=== PATIENT | female | born 1980 | race Caucasian/White ===

== ENCOUNTER 2016-05-08 16:43 | Emergency (ER) | payer OTHER ==
[2016-05-08 17:10] VITALS: BP 136/74
--- NOTE | 2016-05-08 17:44 | UC ---
Throat Pain/Nasal Oziel HPI - HPI Summary HPI Summary: complaint of ear pain , nasal congesion and cough ears feel sensitive to noise frequent headaches feels exhausted muscles feel achy nauseated but denies vomiting and diarrhea denies fever but has had chills hasn't taken any medications for symptoms - History of Current Complaint Chief Complaint: UCGeneralIllness Stated Complaint: THROAT AND EAR PAIN Time Seen by Provider: 05/08/16 17:36 Hx Obtained From: Patient Hx Last Menstrual Period: hysterectomy 2011 - Allergies/Home Medications Allergies/Adverse Reactions: Allergies Allergy/AdvReac Type Severity Reaction Status Date / Time Metronidazole [From Flagyl] Allergy Rash Verified 05/08/16 17:10 PMH/Surg Hx/FS Hx/Imm Hx Previously Healthy: Yes Endocrine History Of: Denies: Diabetes - low blood sugars Neurological History Of: Reports: Seizures - Surgical History Surgical History: Yes Surgery Procedure, Year, and Place: HYSTERECTOMY 2011, GASTRIC BYPASS 2011 - Family History Known Family History: Positive: None, Unknown - poor historian Negative: Diabetes - Social History Occupation: Employed Full-time Lives: Alone Alcohol Use: None Alcohol Amount: UNABLE TO OBTAIN Substance Use Type: None Substance Use Comment - Amount & Last Used: UNABLE TO OBTAIN Smoking Status (MU): Never Smoked Tobacco - Immunization History Most Recent Tetanus Shot: not sure Review of Systems Constitutional: Chills, Fatigue Skin: Negative Eyes: Negative ENT: Sore Throat, Ear Ache, Nasal Discharge Respiratory: Cough Cardiovascular: Negative Gastrointestinal: Negative Genitourinary: Negative Motor: Negative Neurovascular: Negative Musculoskeletal: Negative Neurological: Headache Psychological: Negative All Other Systems Reviewed And Are Negative: Yes Physical Exam Triage Information Reviewed: Yes Appearance: No Pain Distress, Well-Nourished, Ill-Appearing Vital Signs: Initial Vital Signs Temp 98.5 F 05/08/16 17:03 Pulse 77 05/08/16 17:03 Resp 18 05/08/16 17:03 BP 136/74 05/08/16 17:03 Pulse Ox 97 05/08/16 17:03 Vital Signs Reviewed: Yes Eyes: Positive: Conjunctiva Clear ENT: Positive: Pharynx normal, Nasal congestion, Nasal drainage, TMs normal. Negative: TM bulging, TM red Neck: Positive: No Lymphadenopathy Respiratory: Positive: Lungs clear, Normal breath sounds, No respiratory distress Cardiovascular: Positive: RRR, No Murmur, Pulses Normal Abdomen Description: Positive: Nontender, Soft Bowel Sounds: Positive: Present Musculoskeletal: Positive: No Edema Neurological: Positive: Alert Psychological Exam: Normal Skin Exam: Normal Throat Pain/Nasal Course/Dx - Course Course Of Treatment: exam completed. viral illness supportive treatment - Differential Dx/Diagnosis Differential Diagnosis/HQI/PQRI: Influenza, Pharyngitis, URI Provider Diagnoses: viral illness- influenzalike Discharge - Discharge Plan Condition: Stable Disposition: HOME Patient Education Materials: Influenza (ED) Referrals: Tarik Ayala NP [Primary Care Provider] - Additional Instructions: Your blood pressure is pre-hypertensive reading. Please contact your primary care provider within 1 day -4 weeks for further evaluation. you have an influenza like viral illness. Treatment is supportive care, increase fluids and rest, take acetaminophen or ibuprofen for fever or pain Please review your discharge instructions. If your symptoms do not improve please call your primary care provider or return to urgent care
== END 2016-05-08 18:22 | disposition home or self-care (01) ==
LOC: UCEAST 16:43
DX: B34.9 Viral infection, unspecified (principal); J11.1 Influenza due to unidentified influenza virus with other respiratory manifestations; Z88.1 Allergy status to other antibiotic agents; Z98.84 Bariatric surgery status
CPT/HCPCS: 87502; 99211; G0463

== ENCOUNTER 2016-09-06 13:45 | Emergency (ER) | payer OTHER ==
[2016-09-06] MEDS ORDERED: NS 0.9% 1000 ML* 1,000 ML IV ONE ×2 (14:12→15:07)
[2016-09-06 14:22] LABS: Hematocrit 44 % (35-47); Hemoglobin 14.9 g/dl (12.0-16.0); Mean Corpuscular HGB Conc 34 g/dl (31-36); Mean Corpuscular Hemoglobin 29 pg (27-31); Mean Corpuscular Volume 87 fL (80-97); Mean Platelet Volume 8 um3 (7.4-10.4); Red Cell Distribution Width 12 % (10.5-15)
[2016-09-06 14:41] LABS: Albumin 4.1 g/dL (3.2-5.2); BUN/Creatinine Ratio 20.7 (8-20); EGFR African American 102.6 (>60); EGFR Non-African American 79.8 (>60); Globulin 2.9 g/dL (2-4); Magnesium 2.1 mg/dL (1.9-2.7); Potassium 3.9 mmol/L (3.5-5.0); Total Bilirubin 0.4 mg/dL (0.2-1.0)
[2016-09-06 14:47] LABS: TSH (Thyroid Stimulating Horm) 2.08 mcIU/mL (0.34-5.60)
[2016-09-06] MEDS ORDERED: Ketorolac INJ* 30 MG/ML 1 ML VIAL IV PUSH ONE (15:04)
[2016-09-06] MEDS ORDERED: Metoclopramide IV* 5 MG/ML 2 ML VIAL IV ONE (15:05)
[2016-09-06] MEDS ORDERED: diPHENhydraMINE IV* 50 MG/ML 1 ml VIAL (BENADRYL) IV ONE (15:05)
[2016-09-06 16:02] LABS: Urine Bilirubin Negative (Negative); Urine Glucose Negative (Negative); Urine Nitrite Negative (Negative)
[2016-09-06 16:22] VITALS: BP 115/82
--- NOTE | 2016-09-06 19:15 | ED ---
Nelida Vasquez Edward, scribed for Isaiah Arias MD on 09/06/16 at 1442 . Neurological HPI - HPI Summary HPI Summary: 36 y/o female BIBA to ED s/p seizure earlier today. Patient had a slight CASAS before the seizure. The CASAS has been going on for 3 days and she still has a CASAS now, worse than the typical CASAS. The CASAS is located in the top L side of the head. She states that the CASAS's are usually alleviated with Tylenol and rest. Associated sx: dizziness, diaphoresis, nausea with CASAS. PMHx hypoglycemia, CASAS's ( daily). called EMS; per EMS the patient has upper body shaking during her seizures. Pt takes Topamax. Non-smoker, no EtOH use. - History of Current Complaint Chief Complaint: EDSeizure Stated Complaint: SEIZURE Time Seen by Provider: 09/06/16 14:36 Hx Obtained From: Patient Hx Last Menstrual Period: hysterectomy 2011 Onset/Duration: Sudden Onset, Started hours ago - Earlier today Number of Seizures: 1 Neurological Deficit Location: Generalized - Upper body shaking Headache Location: Diffuse (Left) - Top of head Pain Intensity: 0 Character: Dizzy, Other: - Nausea with CASAS, diaphoresis - Allergy/Home Medications Allergies/Adverse Reactions: Allergies Allergy/AdvReac Type Severity Reaction Status Date / Time Metronidazole [From Flagyl] Allergy Rash Verified 05/08/16 17:10 Home Medications: Home Medications Topiramate TAB(*) [Topamax 25 MG tab] 25 mg PO QAM 09/06/16 [History Confirmed 09/06/16] PMH/Surg Hx/FS Hx/Imm Hx Previously Healthy: No Endocrine/Hematology History: Denies: Hx Diabetes - low blood sugars Neurological History: Reports: Hx Seizures - Surgical History Surgery Procedure, Year, and Place: HYSTERECTOMY 2011, GASTRIC BYPASS 2011 Infectious Disease History: No Infectious Disease History: Denies: Hx Clostridium Difficile, Hx Hepatitis, Hx Human Immunodeficiency Virus (HIV), Hx of Known/Suspected MRSA, Hx Shingles, Hx Tuberculosis, Hx Known/ Suspected VRE, Hx Known/Suspected VRSA, History Other Infectious Disease, Traveled Outside the [place] in Last 30 Days - Family History Known Family History: Negative: Diabetes - Social History Occupation: Employed Full-time Lives: With Family Alcohol Use: None Hx Substance Use: No Substance Use Type: Reports: None Hx Tobacco Use: No Smoking Status (MU): Never Smoked Tobacco Review of Systems Positive: Skin Diaphoresis - Prior to seizure Eyes: Negative ENT: Negative Cardiovascular: Negative Respiratory: Negative Positive: Nausea Genitourinary: Negative Musculoskeletal: Negative Skin: Negative Neurological: Other - Dizziness Positive: Headache. Negative: Syncope Psychological: Normal All Other Systems Reviewed And Are Negative: Yes Physical Exam - Summary Physical Exam Summary: The patient is well-nourished in no acute distress and in no acute pain. The skin is warm and dry and skin color reflects adequate perfusion. HEENT: The head is normocephalic and atraumatic. The pupils are equal and reactive. The conjunctivae are clear and without drainage. Nares are patent and without drainage. Mouth reveals moist mucous membranes and the throat is without erythema and exudate. The external ears are intact. Neck is supple with full range of motion and non-tender. There are no carotid bruits. There is no neck vein distension. Respiratory: Chest is non-tender. Lungs are clear to auscultation and breath sounds are symmetrical and equal. Cardiovascular: Hear is regular rate and rhythm. There is no murmur or rub auscultated. There is no peripheral edema and pulses are symmetrical and equal. Abdomen: The abdomen is soft and non-tender. There are normal bowel sounds heard in all four quadrants and there is no organomegaly palpated. Musculoskeletal: There is no back pain noted. Extremities are non-tender with full range of motion. There is good capillary refill. There is no peripheral edema or calf tenderness elicited. Neurological: Patient is alert and oriented to person, place and time. The patient has symmetrical motor strength in all four extremities. Cranial nerves are grossly intact. Deep tendon reflexes are symmetrical and equal in all four extremities. Psychiatric: The patient has an appropriate affect and does not exhibit any anxiety or depression. Triage Information Reviewed: Yes Vital Signs On Initial Exam: Initial Vitals Temp Pulse Resp BP Pulse Ox 98.0 F 65 18 112/71 95 09/06/16 13:58 09/06/16 13:58 09/06/16 13:58 09/06/16 13:58 09/06/16 13:58 Vital Signs Reviewed: Yes - Hortensia Coma Scale Coma Scale Total: 15 Diagnostics - Vital Signs Vital Signs Temp Pulse Resp BP Pulse Ox 09/06/16 14:30 59 14 112/76 97 09/06/16 14:16 97 09/06/16 14:07 70 19 96 09/06/16 14:06 114/78 09/06/16 13:58 98.0 F 65 18 112/71 95 - Laboratory Lab Results: Lab Results 09/06/16 09/06/16 Range/Units 14:00 14:00 WBC 9.0 (3.5-10.8) 10^3/ul RBC 5.10 (4.0-5.4) 10^6/ul Hgb 14.9 (12.0-16.0) g/dl Hct 44 (35-47) % MCV 87 (80-97) fL MCH 29 (27-31) pg MCHC 34 (31-36) g/dl RDW 12 (10.5-15) % Plt Count 323 (150-450) 10^3/ul MPV 8 (7.4-10.4) um3 Neut % (Auto) 61.4 (38-83) % Lymph % (Auto) 29.2 (25-47) % Greenlee % (Auto) 6.8 (1-9) % Eos % (Auto) 2.1 (0-6) % Baso % (Auto) 0.5 (0-2) % Absolute Neuts (auto) 5.5 (1.5-7.7) 10^3/ul Absolute Lymphs (auto) 2.6 (1.0-4.8) 10^3/ul Absolute Monos (auto) 0.6 (0-0.8) 10^3/ul Absolute Eos (auto) 0.2 (0-0.6) 10^3/ul Absolute Basos (auto) 0 (0-0.2) 10^3/ul Absolute Nucleated RBC 0.01 10^3/ul Nucleated RBC % 0.2 Lactic Acid 1.3 (0.5-2.0) mmol/L Result Diagrams: 09/06/16 14:00 09/06/16 14:00 Lab Statement: Any lab studies that have been ordered have been reviewed, and results considered in the medical decision making process. Re-Evaluation - Re-Evaluation 1 Re-Evaluation Time: 16:20 Change: Improved Course/Dx - Course Assessment/Plan: 36 y/o female BIBA to ED s/p seizure earlier today. Patient had a slight CASAS before the seizure. The CASAS has been going on for 3 days and she still has a CASAS now, worse than the typical CASAS. The CASAS is located in the top L side of the head. She states that the CASAS's are usually alleviated with Tylenol and rest. Associated sx: dizziness, diaphoresis, nausea with CASAS. PMHx hypoglycemia, CASAS's (daily). called EMS; per EMS the patient has upper body shaking during her seizures. Pt takes Topamax. Non-smoker, no EtOH use. On re-eval, pt's symptoms have improved. Pt will be d/c home with f/u with PCP. - Differential Dx Differential Diagnoses Neuro: Positive: Hypoglycemia, Hypovolemia, Migraine, Seizure Disorder - Diagnoses Provider Diagnoses: Headache, Seizure Discharge - Discharge Plan Condition: Stable Disposition: HOME Patient Education Materials: General Headache (ED), Nonepileptic Seizures (ED) Referrals: Tarik Ayala, [facility]ON[facility] BUFFER [Primary Care Provider] - 3 Days (Please f/u in 2-3 days) The documentation as recorded by the Nelida connor Edward accurately reflects the service I personally performed and the decisions made by , Isaiah Arias MD.
== END 2016-09-06 16:44 | disposition home or self-care (01) ==
LOC: ED 13:45
DX: R56.9 Unspecified convulsions (principal); R51 Headache; R42 Dizziness and giddiness; R11.0 Nausea
CPT/HCPCS: 36415; 80053; 80201; 81003; 82550; 83605; 83735; 84443; 85025; 85610; 96374; 96375; 99282; J1200; J1885

== ENCOUNTER 2017-05-16 14:42 | Emergency (ER) | payer OTHER ==
[2017-05-16 14:54] VITALS: BP 117/83
[2017-05-16] MEDS ORDERED: predniSONE TAB* 20 MG PO ONE (15:45)
--- NOTE | 2017-05-16 15:45 | UC ---
Skin Complaint HPI - HPI Summary HPI Summary: States that 5 days ago she started to take apple cider vinegar before 2 of her meals and noticed some itching in the right commisure of her mouth, followed by itching in the roof of her mouth, the crack of her buttocks, the crease under belly, nipples and skin around her eyes. She states she has been using same soaps as usual. She used benadryl without any relief. - History of Current Complaint Chief Complaint: UCAllergicReaction Time Seen by Provider: 05/16/17 15:35 Stated Complaint: POSSIBLE ALLERGIC REACTION Hx Obtained From: Patient Hx Last Menstrual Period: hysterectomy 2012 ?: No Onset/Duration: Sudden Onset, Lasting Days Skin Exposure Onset/Duration: Days Ago Onset Severity: Mild Current Severity: Severe Pain Intensity: 0 Location: Diffuse, Other - in creases Character: Pruritus Aggravating Factor(s): Other - ingested vinegar Alleviating Factor(s): Nothing - Allergy/Home Medications Allergies/Adverse Reactions: Allergies Allergy/AdvReac Type Severity Reaction Status Date / Time metronidazole [From Flagyl] Allergy Rash Verified 05/16/17 14:55 Review of Systems Constitutional: Negative All Other Systems Reviewed And Are Negative: Yes PMH/Surg Hx/FS Hx/Imm Hx Previously Healthy: Yes Neurological History: Other - occipital headaches Other Neurological History: occipital headaches Psychological History: Depression - Surgical History Surgical History: Yes Surgery Procedure, Year, and Place: HYSTERECTOMY 2011, GASTRIC BYPASS 2011 - Family History Known Family History: Positive: None, Unknown - poor historian Negative: Diabetes - Social History Alcohol Use: None Alcohol Amount: UNABLE TO OBTAIN Substance Use Type: None Substance Use Comment - Amount & Last Used: UNABLE TO OBTAIN Smoking Status (MU): Never Smoked Tobacco - Immunization History Most Recent Tetanus Shot: not sure Physical Exam Triage Information Reviewed: Yes Appearance: Well-Appearing, Obese Vital Signs: Initial Vital Signs Temp 98.2 F 05/16/17 14:50 Pulse 64 05/16/17 14:50 Resp 18 05/16/17 14:50 BP 117/83 05/16/17 14:50 Pulse Ox 100 05/16/17 14:50 Vital Signs Reviewed: Yes Eyes: Positive: Conjunctiva Clear ENT: Positive: Hearing grossly normal, Pharynx normal, TMs normal, Uvula midline Neck: Positive: Supple, Nontender, No Lymphadenopathy Respiratory: Positive: Chest non-tender, Lungs clear, Normal breath sounds, No respiratory distress Cardiovascular: Positive: RRR, No Murmur, Pulses Normal Abdomen Description: Positive: Nontender Bowel Sounds: Positive: Present Musculoskeletal Exam: Normal Skin: Positive: Other - erythema on left zygoma and escoriation duron on left lower eyelid, right side of mouth. No echymoses Course/Dx - Course Course Of Treatment: start prednisone 60mg po daily for 5 days, f/u PCP, discontinue apple cider vinegar - Diagnoses Provider Diagnoses: urticaria Discharge - Sign-Out/Discharge Documenting (check all that apply): Discharge - Discharge Plan Condition: Stable Disposition: HOME Patient Education Materials: Urticaria (ED), Prednisone (By mouth) Referrals: Tarik Ayala NP [Primary Care Provider] - - Billing Disposition and Condition Condition: STABLE Disposition: HOME
== END 2017-05-16 16:16 | disposition home or self-care (01) ==
LOC: UCEAST 14:42
DX: L50.9 Urticaria, unspecified (principal); F32.9 Major depressive disorder, single episode, unspecified; Z88.1 Allergy status to other antibiotic agents
CPT/HCPCS: 99212; G0463; J7512

== ENCOUNTER 2017-08-03 09:42 | Emergency (ER) | payer OTHER ==
[2017-08-03 09:59] VITALS: BP 132/67
--- NOTE | 2017-08-03 10:24 | UC ---
Complaint Female HPI - HPI Summary HPI Summary: The patient is a 36-year-old female with a first presents with a one-month history of foul-smelling urine. She states her urine has smelled fishy. She denies any vaginal discharge or itching /she has not had any dysuria. She has it had increased frequency of urination 2 weeks. For the past 24 hours she has had some mild pelvic pain. She has a history of UTIs. She denies any history of pyelonephritis. She has had transabdominal hysterectomy. - History Of Current Complaint Chief Complaint: UCGU Stated Complaint: URINARY ISSUE Time Seen by Provider: 08/03/17 09:54 Hx Obtained From: Patient Hx Last Menstrual Period: hysterectomy 2011 Onset/Duration: Gradual Onset Timing: Constant Severity Initially: Mild Severity Currently: Mild Pain Intensity: 3 Pain Scale Used: 0-10 Numeric Character: Dull Aggravating Factor(s): Nothing Associated Signs And Symptoms: Positive: Negative - Allergies/Home Medications Allergies/Adverse Reactions: Allergies Allergy/AdvReac Type Severity Reaction Status Date / Time metronidazole [From Flagyl] Allergy Rash Verified 08/03/17 09:59 Home Medications: Home Medications Cranberry 400 mg PO DAILY 08/03/17 [History Confirmed 08/03/17] Multivitamin [Multivitamins] 1 cap PO DAILY 08/03/17 [History Confirmed 08/03/17 ] PMH/Surg Hx/FS Hx/Imm Hx Previously Healthy: Yes - Surgical History Surgical History: Yes Surgery Procedure, Year, and Place: HYSTERECTOMY 2011, GASTRIC BYPASS 2011 - Family History Known Family History: Positive: None, Unknown - poor historian, Diabetes - Social History Alcohol Use: None Alcohol Amount: UNABLE TO OBTAIN Substance Use Type: None Substance Use Comment - Amount & Last Used: UNABLE TO OBTAIN Smoking Status (MU): Never Smoked Tobacco - Immunization History Most Recent Tetanus Shot: not sure Review of Systems Constitutional: Negative Skin: Negative Eyes: Negative ENT: Negative Respiratory: Negative Cardiovascular: Negative Gastrointestinal: Negative Genitourinary: Frequency, Urgency Motor: Negative Neurovascular: Negative Musculoskeletal: Negative Neurological: Negative Psychological: Negative Is Patient Immunocompromised?: No All Other Systems Reviewed And Are Negative: Yes Physical Exam Triage Information Reviewed: Yes Appearance: Well-Appearing, No Pain Distress, Well-Nourished Vital Signs: Initial Vital Signs Temp 98.8 F 08/03/17 09:53 Pulse 91 08/03/17 09:53 Resp 16 08/03/17 09:53 BP 132/67 08/03/17 09:53 Pulse Ox 98 08/03/17 09:53 Eyes: Positive: Conjunctiva Clear ENT: Positive: Hearing grossly normal. Negative: Nasal congestion, Nasal drainage, Trismus, Muffled voice, Hoarse voice Neck: Positive: Supple Respiratory: Positive: Lungs clear, Normal breath sounds, No respiratory distress, No accessory muscle use Cardiovascular: Positive: RRR, No Murmur Abdomen Description: Positive: Nontender, No Organomegaly. Negative: CVA Tenderness (R), CVA Tenderness (L), Hernia @, McBurney's Point Tenderness, Splenomegaly Pelvic Exam: Positive: External Exam Normal, No Masses, Discharge - with amine oder. Negative: Bimanual Exam Normal - absent uterus, Mass, Tender Adnexa, Ulcers Musculoskeletal: Positive: ROM Intact, No Edema Neurological: Positive: Alert Psychological Exam: Normal Skin Exam: Normal Diagnostics - Laboratory Diagnostic Studies Completed/Ordered: urine analysis (-) Complaint Female Dx - Differential Dx/Diagnosis Provider Diagnoses: bacterial vaginosis Discharge - Sign-Out/Discharge Documenting (check all that apply): Discharge/Admit/Transfer - Discharge Plan Condition: Stable Disposition: HOME Prescriptions: Clindamycin SUPP (NF) [Cleocin 100 MG SUPP (NF)] 100 mg VAGINAL BEDTIME #3 sup Patient Education Materials: Bacterial Vaginosis (ED) Referrals: Tarik Ayala, [employer] [Primary Care Provider] - If Needed Additional Instructions: I suspect your urinary symptoms are due to BV test is pending one vaginal suppository at bedtime x 3 days recheck late this week if not improving a urine culture is pending - Billing Disposition and Condition Condition: STABLE Disposition: Home
--- NOTE | 2017-08-05 13:31 | UC ---
- Progress Note Progress Note: urine reviewed [id number] E.. coli Pt given clinda suppo for BV will Rx Augmentin please call pt to update and get Rx Ljj 08/05/2017 Discharge - Sign-Out/Discharge Documenting (check all that apply): Post-Discharge Follow Up - Discharge Plan Condition: Stable Disposition: HOME Prescriptions: Clindamycin SUPP (NF) [Cleocin 100 MG SUPP (NF)] 100 mg VAGINAL BEDTIME #3 sup Patient Education Materials: Bacterial Vaginosis (ED), Urinary Tract Infection in Women (DC) Referrals: Tarik Ayala, [employer] TECHNICIAN [Primary Care Provider] - If Needed Additional Instructions: I suspect your urinary symptoms are due to BV test is pending one vaginal suppository at bedtime x 3 days recheck late this week if not improving a urine culture is pending - Billing Disposition and Condition Condition: STABLE Disposition: Home
== END 2017-08-03 10:50 | disposition home or self-care (01) ==
LOC: UCEAST 09:42
DX: N76.0 Acute vaginitis (principal); B96.89 Other specified bacterial agents as the cause of diseases classified elsewhere; Z88.8 Allergy status to other drugs, medicaments and biological substances
CPT/HCPCS: 81003; 87077; 87086; 87186; 87480; 87510; 99212; G0463

== ENCOUNTER 2018-04-29 07:29 | Emergency (ER) | payer OTHER ==
[2018-04-29 07:45] VITALS: BP 140/89
[2018-04-29] MEDS ORDERED: Cyclobenzaprine TAB* 10 MG PO ONE (07:58)
[2018-04-29] MEDS ORDERED: Ketorolac INJ* 60 MG/2 ML VIAL IM ONE (07:58)
[2018-04-29] MEDS ORDERED: LORazepam TAB(*) 1 MG PO ONE (08:04)
--- NOTE | 2018-04-29 08:11 | ED ---
Back Pain - HPI Summary HPI Summary: 37 yo WF p/w acute LBP that tightened up m,ore this AM after pushing a brick yesterday while bent over, pain radiated B/L, Left>right - History of Current Complaint Chief Complaint: UCBackPain Stated Complaint: BACK PAIN Time Seen by Provider: 04/29/18 07:58 Hx Obtained From: Patient Hx Last Menstrual Period: hyster Onset/Duration: Sudden Onset Onset/Duration: Atraumatic Timing: Constant Back Pain Location: Radiates To - B/L legs Severity Initially: Severe Pain Intensity: 10 - Allergies/Home Medications Allergies/Adverse Reactions: Allergies Allergy/AdvReac Type Severity Reaction Status Date / Time metronidazole [From Flagyl] Allergy Rash Verified 03/29/18 11:12 PMH/Surg Hx/FS Hx/Imm Hx Previously Healthy: Yes Endocrine/Hematology History: Reports: Hx Diabetes - hyperglycemia Neurological History: Reports: Hx Seizures - Cancer History Cancer Type, Location and Year: denies - Surgical History Surgery Procedure, Year, and Place: HYSTERECTOMY 2011, GASTRIC BYPASS 2012 Infectious Disease History: No Infectious Disease History: Denies: Hx Clostridium Difficile, Hx Hepatitis, Hx Human Immunodeficiency Virus (HIV), Hx of Known/Suspected MRSA, Hx Shingles, Hx Tuberculosis, Hx Known/ Suspected VRE, Hx Known/Suspected VRSA, History Other Infectious Disease, Traveled Outside the [place] in Last 30 Days - Family History Known Family History: Positive: Hypertension, Diabetes - Social History Alcohol Use: None Alcohol Amount: UNABLE TO OBTAIN Hx Substance Use: No Substance Use Type: Reports: None Substance Use Comment - Amount & Last Used: UNABLE TO OBTAIN Hx Tobacco Use: No Smoking Status (MU): Never Smoked Tobacco Review of Systems - ROS Summary Review of Systems Summary: Constitutional: Negative Eyes: Negative ENT: Negative Cardiovascular: Negative Respiratory: Negative Gastrointestinal: Negative Genitourinary: Negative Musculoskeletal: Acute low back spasm Neurological: Negative Psychological: Normal All Other Systems Reviewed And Are Negative: Yes All Other Systems Reviewed And Are Negative: Yes Physical Exam - Summary Physical Exam Summary: Triage Information Reviewed: Yes Appearance: severe Pain Distress, cannot sit Eye Exam: Normal ENT Exam: Normal ENT: Positive: Normal ENT inspection Neck: Positive: Supple Respiratory: Positive: Lungs clear, Normal breath sounds Cardiovascular: Positive: RRR, S1, S2 Abdominal Exam: Normal Musculoskeletal Exam: B/L parapspinal tenderness, deep, lumbar level 4-5 with radiation to LLE>RLE Neurological Exam: Normal Psychological Exam: Normal Skin Exam: Normal Vital Signs On Initial Exam: Initial Vitals Temp Pulse Resp BP Pulse Ox 36.5 C 110 19 140/89 98 04/29/18 07:39 04/29/18 07:39 04/29/18 07:39 04/29/18 07:39 04/29/18 07:39 Diagnostics - Vital Signs Vital Signs Temp Pulse Resp BP Pulse Ox 04/29/18 07:39 36.5 C 110 19 140/89 98 - Laboratory Lab Statement: Any lab studies that have been ordered have been reviewed, and results considered in the medical decision making process. Back Pain Course/Dx - Course Course Of Treatment: Acute back spasm improved with PO ativan, IM Toradol and PO flexeril, pt can ambulate now, advised to go to ED if intractable pain returns - Diagnoses Provider Diagnoses: Acute back pain with sciatica Discharge - Sign-Out/Discharge Documenting (check all that apply): Patient Departure All imaging exams completed and their final reports reviewed: No Studies - Discharge Plan Condition: Stable Disposition: HOME Prescriptions: Naproxen [Naproxen 500 mg tab] 500 mg PO BID 10 Days #20 tablet tiZANidine TAB* [Zanaflex TAB*] 2 tab PO BEDTIME 5 Days #10 tab Patient Education Materials: Muscle Spasm (ED) Referrals: Tarik Ayala NP [Primary Care Provider] - - Billing Disposition and Condition Condition: STABLE Disposition: Home
== END 2018-04-29 09:10 | disposition home or self-care (01) ==
LOC: UCEAST 07:29
DX: M54.42 Lumbago with sciatica, left side (principal); M54.41 Lumbago with sciatica, right side; E11.9 Type 2 diabetes mellitus without complications; Z88.1 Allergy status to other antibiotic agents
CPT/HCPCS: 99212; A9270-GY; G0463; J1885

== ENCOUNTER 2018-06-28 08:01 | Emergency (ER) | payer OTHER ==
[2018-06-28 08:14] VITALS: BP 142/83
--- NOTE | 2018-06-28 08:23 | UC ---
Abdominal Pain Female HPI - HPI Summary HPI Summary: 37 yo female with acute onset of severe abd pain 4AM no n/v/d or anorexia ate breakfast with no increase in pain pain is RUQ with no radiation to back no UTI symptoms had gastric bypass - History of Current Complaint Stated Complaint: STOMACH PAIN Hx Obtained From: Patient Hx Last Menstrual Period: hyster Onset/Duration: Lasting Hours Severity Initially: Severe Severity Currently: Severe Pain Intensity: 10 Pain Scale Used: 0-10 Numeric Location: Discrete At: RUQ Radiates to: Back Character: Aching Aggravating Factor(s): Nothing Alleviating Factor(s): Nothing Associated Signs and Symptoms: Positive: Negative Allergies/Adverse Reactions: Allergies Allergy/AdvReac Type Severity Reaction Status Date / Time metronidazole [From Flagyl] Allergy Rash Verified 06/28/18 08:14 Home Medications: Home Medications diphenhydrAMINE HCl [Benadryl Allergy] 4 tab PO ONCE PRN 06/28/18 [History Confirmed 06/28/18] hydrOXYzine HCL TAB* [Atarax 25 MG TAB*] 25 mg PO QID PRN 06/28/18 [History Confirmed 06/28/18] PMH/Surg Hx/FS Hx/Imm Hx Previously Healthy: Yes GI/ History: Kidney Stones - Surgical History Surgical History: Yes Surgery Procedure, Year, and Place: HYSTERECTOMY 2011, GASTRIC BYPASS 2012 - Family History Known Family History: Positive: Hypertension, Diabetes - Social History Alcohol Use: None Alcohol Amount: UNABLE TO OBTAIN Substance Use Type: None Substance Use Comment - Amount & Last Used: UNABLE TO OBTAIN Smoking Status (MU): Never Smoked Tobacco - Immunization History Most Recent Tetanus Shot: not sure Review of Systems All Other Systems Reviewed And Are Negative: Yes Constitutional: Positive: Negative Skin: Positive: Negative Eyes: Positive: Negative ENT: Positive: Negative Respiratory: Positive: Negative Cardiovascular: Positive: Negative Gastrointestinal: Positive: Abdominal Pain Genitourinary: Positive: Negative Motor: Positive: Negative Neurovascular: Positive: Negative Musculoskeletal: Positive: Negative Neurological: Positive: Negative Psychological: Positive: Negative Physical Exam Triage Information Reviewed: Yes Appearance: Well-Appearing, Well-Nourished - BMI 39.5, Pain Distress Vital Signs: Initial Vital Signs Temp 97.6 F 06/28/18 08:10 Pulse 63 06/28/18 08:10 Resp 20 06/28/18 08:10 BP 142/83 06/28/18 08:10 Pulse Ox 98 06/28/18 08:10 Vital Signs Reviewed: Yes Eyes: Positive: Conjunctiva Clear ENT: Positive: Hearing grossly normal. Negative: Nasal congestion, Nasal drainage, Trismus, Muffled voice, Hoarse voice Neck: Positive: Supple, Nontender, No Lymphadenopathy Respiratory: Positive: Lungs clear, Normal breath sounds, No respiratory distress Cardiovascular: Positive: RRR, No Murmur Abdomen Description: Positive: No Organomegaly, Soft. Negative: Nontender - markedly tender RUQ, CVA Tenderness (R), CVA Tenderness (L) Bowel Sounds: Positive: Present Musculoskeletal: Positive: ROM Intact, No Edema Neurological: Positive: Alert Psychological Exam: Normal Skin Exam: Normal Abd Pain Female Course/Dx - Differential Dx/Diagnosis Provider Diagnosis: Right sided abdominal pain Discharge - Sign-Out/Discharge Documenting (check all that apply): Patient Departure All imaging exams completed and their final reports reviewed: No Studies - Discharge Plan Condition: Stable Disposition: TRANS HIGHER LVL OF CARE FAC Referrals: Tarik Ayala NP [Primary Care Provider] - - Billing Disposition and Condition Condition: STABLE Disposition: Trans Higher Lvl of Care Fac
[2018-06-28] MEDS ORDERED: Morphine INJ* 2 MG/ML 1 ML SYRINGE (TWO MG - NEW SYRINGE VERSION) IV ONE (08:24)
[2018-06-28] MEDS ORDERED: Morphine 10 MG/ML VIAL (1 ml) IV ONE (08:29)
== END 2018-06-28 09:07 | disposition short-term general hospital (02) ==
LOC: UCEAST 08:01
DX: R10.11 Right upper quadrant pain (principal); Z98.84 Bariatric surgery status; Z88.1 Allergy status to other antibiotic agents
CPT/HCPCS: 96374; 99213; G0463; J2270

== ENCOUNTER 2018-06-28 09:23 | Emergency (ER) | payer OTHER ==
[2018-06-28] MEDS ORDERED: Ketorolac INJ* 30 MG/ML 1 ML VIAL IV PUSH ONE (09:53)
[2018-06-28 09:56] LABS: ABS Basophils 0.1 10^3/ul (0-0.2); ABS Lymphocytes 1.5 10^3/ul (1.0-4.8); ABS Monocytes 0.4 10^3/ul (0-0.8); ABS Neutrophils 8.3 10^3/ul (1.5-7.7); Eosinophil % 0.5 %; Hematocrit 41 % (35-47); Hemoglobin 13.4 g/dL (12.0-16.0); Lymphocyte % 14.2 %; Mean Corpuscular HGB Conc 33 g/dL (31-36); Mean Corpuscular Hemoglobin 28 pg (27-31); Mean Corpuscular Volume 85 fL (80-97); Mean Platelet Volume 7.5 fL (7.4-10.4); Platelet Count 330 10^3/uL (150-450); Red Blood Count 4.78 10^6 /uL (3.70-4.87); Red Cell Distribution Width 12 % (10.5-15); White Blood Count 10.3 10^3/uL (3.5-10.8)
[2018-06-28 10:03] LABS: INR 0.96 (0.82-1.09)
[2018-06-28 10:12] LABS: Albumin/Globulin Ratio 1.5 (1-3); BUN/Creatinine Ratio 23.3 (8-20); C Reactive Protein 1.68 mg/L (<8.01); Calcium 8.9 mg/dL (8.6-10.3); EGFR African American 109.8 (>60); EGFR Non-African American 90.7 (>60); Globulin 2.6 g/dL (2-4); Potassium 4.2 mmol/L (3.5-5.0); Total Bilirubin 0.3 mg/dL (0.2-1.0); Total Protein 6.6 g/dL (6.4-8.9)
[2018-06-28 10:37] LABS: Urine Appearance Clear; Urine Bilirubin Negative (Negative); Urine Blood Negative (Negative); Urine Color Yellow; Urine Glucose Negative (Negative); Urine Ketones Negative (Negative); Urine Nitrite Negative (Negative); Urine Protein Negative (Negative); Urine Specific Gravity 1.023 (1.010-1.030); Urine Urobilinogen Negative (Negative)
--- NOTE | 2018-06-28 10:40 | ED ---
Abdominal Pain/Female - HPI Summary HPI Summary: Patient is a 37 y/o F presenting to ED with complaints of RUQ pain since 0400 this morning. She states that she last ate at 0600 this morning, noting that she ate cereal with minimal 1% milk at 0400 and toast at 0600. Nausea endorsed but patient denies vomiting today but reports having vomited x3 times in the past month. Pain is unchanged since onset. Hx of gastric bypass done at [place]. Fever, diarrhea, and urinary symptoms are denied. Patient states that she typically has pain after she eats. Hx of hypoglycemia with seizures, patient notes that she is on hydroxyzine for anxiety, celexa for depression. PSHx of hysterectomy. Patient notes that she was evaluated at [facility] for Sx, patient was sent to ED for further evaluation. She received morphine at [facility] with temporary relief in Sx, pain returned after a few minutes. On triage, pain is rated 10/10, nothing is noted to aggravate/alleviate Sx. Home medications and allergies are reviewed. - History of Current Complaint Chief Complaint: EDAbdPain Stated Complaint: ABD PAIN PER EMS Time Seen by Provider: 06/28/18 09:25 Hx Obtained From: Patient Hx Last Menstrual Period: hyster Onset/Duration: Lasting Hours - onset 0400 this morning, Still Present Timing: Constant Severity Initially: Severe Severity Currently: Severe Pain Intensity: 10 Pain Scale Used: 0-10 Numeric Location: Discrete At: RUQ Aggravating Factor(s): Nothing Alleviating Factor(s): Nothing Associated Signs and Symptoms: Positive: Nausea. Negative: Fever, Urinary Symptoms, Vomiting - none today, Diarrhea Allergies/Adverse Reactions: Allergies Allergy/AdvReac Type Severity Reaction Status Date / Time metronidazole [From Flagyl] Allergy Rash Verified 06/28/18 08:14 PMH/Surg Hx/FS Hx/Imm Hx Endocrine/Hematology History: Comment Only: Hx Diabetes - hypoglycemia Neurological History: Reports: Hx Seizures Psychiatric History: Reports: Hx Anxiety, Hx Depression - Cancer History Cancer Type, Location and Year: denies - Surgical History Surgery Procedure, Year, and Place: HYSTERECTOMY 2011, GASTRIC BYPASS 2012 Infectious Disease History: No Infectious Disease History: Denies: Hx Clostridium Difficile, Hx Hepatitis, Hx Human Immunodeficiency Virus (HIV), Hx of Known/Suspected MRSA, Hx Shingles, Hx Tuberculosis, Hx Known/ Suspected VRE, Hx Known/Suspected VRSA, History Other Infectious Disease, Traveled Outside the [place] in Last 30 Days - Family History Known Family History: Positive: Hypertension, Diabetes - Social History Alcohol Use: None Alcohol Amount: UNABLE TO OBTAIN Hx Substance Use: No Substance Use Type: Reports: None Substance Use Comment - Amount & Last Used: UNABLE TO OBTAIN Hx Tobacco Use: No Smoking Status (MU): Never Smoked Tobacco Review of Systems Negative: Fever Positive: Abdominal Pain, Nausea. Negative: Vomiting, Diarrhea Positive: no symptoms reported - NO URINARY SYMPTOMS REPORTED All Other Systems Reviewed And Are Negative: Yes Physical Exam - Summary Physical Exam Summary: Appearance: well appearing, mild to moderate pain distress Skin: warm, dry, reflects adequate perfusion Head/face: normal Eyes: EOMI, ILIANA ENT: mucous membranes moist Neck: supple, non-tender Respiratory: CTA, breath sounds present Cardiovascular: RRR, pulses symmetrical Abdomen: RUQ tenderness, negative Pfeiffer's sign, soft Bowel Sounds: present Musculoskeletal: normal, strength/ROM intact Neuro: normal, sensory motor intact, A&Ox3 Triage Information Reviewed: Yes Vital Signs On Initial Exam: Initial Vitals Pulse BP Pulse Ox 59 134/77 97 06/28/18 09:26 06/28/18 09:26 06/28/18 09:26 Vital Signs Reviewed: Yes Diagnostics - Vital Signs Vital Signs Temp Pulse Resp BP Pulse Ox 06/28/18 10:18 110/62 06/28/18 09:45 60 95 06/28/18 09:27 98.1 F 72 16 134/77 98 06/28/18 09:26 59 134/77 97 - Laboratory Lab Results: Lab Results 06/28/18 06/28/18 06/28/18 Range/Units 09:45 09:45 09:45 WBC 10.3 (3.5-10.8) 10^3/uL RBC 4.78 (3.70-4.87) 10^6 /uL Hgb 13.4 (12.0-16.0) g/dL Hct 41 (35-47) % MCV 85 (80-97) fL MCH 28 (27-31) pg MCHC 33 (31-36) g/dL RDW 12 (10.5-15) % Plt Count 330 (150-450) 10^3/uL MPV 7.5 (7.4-10.4) fL Neut % (Auto) 80.3 % Lymph % (Auto) 14.2 % [place] % (Auto) 4.3 % Eos % (Auto) 0.5 % Baso % (Auto) 0.7 % Absolute Neuts (auto) 8.3 H (1.5-7.7) 10^3/ul Absolute Lymphs (auto) 1.5 (1.0-4.8) 10^3/ul Absolute Monos (auto) 0.4 (0-0.8) 10^3/ul Absolute Eos (auto) 0.0 (0-0.6) 10^3/ul Absolute Basos (auto) 0.1 (0-0.2) 10^3/ul Absolute Nucleated RBC 0.0 10^3/ul Nucleated RBC % 0.0 INR (Anticoag Therapy) 0.96 (0.82-1.09) Sodium 138 (135-145) mmol/L Potassium 4.2 (3.5-5.0) mmol/L Chloride 105 (101-111) mmol/L Carbon Dioxide 26 (22-32) mmol/L Anion Gap 7 (2-11) mmol/L BUN 17 (6-24) mg/dL Creatinine 0.73 (0.51-0.95) mg/dL Est GFR ( Amer) 109.8 (>60) Est GFR (Non-Af Amer) 90.7 (>60) BUN/Creatinine Ratio 23.3 H (8-20) Glucose 124 H (70-100) mg/dL Lactic Acid (0.5-2.0) mmol/L Calcium 8.9 (8.6-10.3) mg/dL Total Bilirubin 0.30 (0.2-1.0) mg/dL AST 13 (13-39) U/L ALT 14 (7-52) U/L Alkaline Phosphatase 33 L (34-104) U/L C-Reactive Protein 1.68 (<8.01) mg/L Total Protein 6.6 (6.4-8.9) g/dL Albumin 4.0 (3.2-5.2) g/dL Globulin 2.6 (2-4) g/dL Albumin/Globulin Ratio 1.5 (1-3) Lipase 25 (11.0-82.0) U/L 06/28/18 Range/Units 09:45 WBC (3.5-10.8) 10^3/uL RBC (3.70-4.87) 10^6 /uL Hgb (12.0-16.0) g/dL Hct (35-47) % MCV (80-97) fL MCH (27-31) pg MCHC (31-36) g/dL RDW (10.5-15) % Plt Count (150-450) 10^3/uL MPV (7.4-10.4) fL Neut % (Auto) % Lymph % (Auto) % [place] % (Auto) % Eos % (Auto) % Baso % (Auto) % Absolute Neuts (auto) (1.5-7.7) 10^3/ul Absolute Lymphs (auto) (1.0-4.8) 10^3/ul Absolute Monos (auto) (0-0.8) 10^3/ul Absolute Eos (auto) (0-0.6) 10^3/ul Absolute Basos (auto) (0-0.2) 10^3/ul Absolute Nucleated RBC 10^3/ul Nucleated RBC % INR (Anticoag Therapy) (0.82-1.09) Sodium (135-145) mmol/L Potassium (3.5-5.0) mmol/L Chloride (101-111) mmol/L Carbon Dioxide (22-32) mmol/L Anion Gap (2-11) mmol/L BUN (6-24) mg/dL Creatinine (0.51-0.95) mg/dL Est GFR ( Amer) (>60) Est GFR (Non-Af Amer) (>60) BUN/Creatinine Ratio (8-20) Glucose (70-100) mg/dL Lactic Acid 2.0 (0.5-2.0) mmol/L Calcium (8.6-10.3) mg/dL Total Bilirubin (0.2-1.0) mg/dL AST (13-39) U/L ALT (7-52) U/L Alkaline Phosphatase (34-104) U/L C-Reactive Protein (<8.01) mg/L Total Protein (6.4-8.9) g/dL Albumin (3.2-5.2) g/dL Globulin (2-4) g/dL Albumin/Globulin Ratio (1-3) Lipase (11.0-82.0) U/L Result Diagrams: 06/28/18 09:45 06/28/18 09:45 Lab Statement: Any lab studies that have been ordered have been reviewed, and results considered in the medical decision making process. - Ultrasound No standard instances Ultrasound Interpretation Completed By: Radiologist Summary of Ultrasound Findings: GALLBLADDER US IMPRESSION: Enlarged echogenic liver consistent with hepatic steatosis. The gallbladder demonstrates biliary sludge and gallstones. No biliary duct dilatation is. noted. THIS REPORT WAS REVIEWED BY DR. PHILIP. Re-Evaluation - Re-Evaluation First Eval Re-Evaluation Time: 10:46 Change: Improved Comment: Patient reports that her pain is controlled. Second Eval Re-Evaluation Time: 10:51 Change: Unchanged Comment: Discussed surgery consult with the patient, patient is agreeable with discharge to home and follow up plan. Abdominal Pain Fem Course/Dx - Course Course Of Treatment: Patient with a history of Hamilton-en-Y gastric bypass presents with right upper quadrant abdominal pain. Gallbladder ultrasound indicates a fatty liver and gallstones without evidence for acute cholecystitis. WBC nonelevated. Patient's pain was treated and relieved. I spoke with the surgeon who suggested follow-up with her bariatric surgeon or one of ours should she not want to return to [place]. Patient is discharged in good condition will follow-up with the surgeon of [facility]. She is instructed to follow a no fat diet. - Diagnoses Differential Diagnosis: Positive: Constipation, Gall Bladder Disease, Hepatitis , Irritable Bowel Syndrome, Ovarian Cyst, Pancreatitis Provider Diagnoses: RUQ abdominal pain, Biliary colic, Cholelithiasis, S/P gastric bypass - Provider Notifications Discussed Care Of Patient With: Larissa Mendoza Time Discussed With Above Provider: 10:48 Instructed by Provider To: Other - Patient's case was discussed with Dr. Mendoza at 1048. Dr. Mendoza states that if she does not want to go to [place], she can follow up with general surgery, Dr. Faustin, in [place]. Dr. Mendoza also recommends that she follows up with bariatric surgeon Discharge - Sign-Out/Discharge Documenting (check all that apply): Patient Departure - discharge Patient Received Moderate/Deep Sedation with Procedure: No - Discharge Plan Condition: Stable Disposition: HOME Prescriptions: Famotidine TAB* [Pepcid 20 MG TAB*] 20 mg PO BID PRN #30 tab PRN Reason: take if taking naproxen Naproxen [Naproxen 250 mg tab] 250 mg PO BID PRN #14 tablet PRN Reason: Pain Ondansetron ODT TAB* [Zofran 4 MG Odt TAB*] 4 mg PO Q8H PRN #12 tab.odt PRN Reason: Nausea Patient Education Materials: Biliary Colic (ED) Referrals: Jeffrey Faustin MD [Medical Doctor] - Tarik Ayala NP [Primary Care Provider] - Additional Instructions: Call Dr. Silver at [facility] to schedule follow-up regarding your gallbladder. Return with fever, vomiting, increased pain, worse or other concerns as discussed. Strictly avoid fat in your diet. - Billing Disposition and Condition Condition: STABLE Disposition: Home - Attestation Statements Document Initiated by Mark: Yes Documenting Scribe: CONNIE RENE Provider For Whom Mark is Documenting (Include Credential): DAVIDE PHILIP MD Scribe Attestation: ICONNIE, scribed for DAVIDE PHILIP MD on 06/28/18 at 1435. Scribe Documentation Reviewed: Yes Provider Attestation: The documentation as recorded by the CONNIE connor accurately reflects the service I personally performed and the decisions made by me, DAVIDE PHILIP MD Status of Scrjuliet Document: Viewed
[2018-06-28 11:03] VITALS: BP 94/47
== END 2018-06-28 11:02 | disposition home or self-care (01) ==
LOC: ED 09:23
DX: K80.20 Calculus of gallbladder without cholecystitis without obstruction (principal); Z98.84 Bariatric surgery status
CPT/HCPCS: 36415; 76705; 80053; 81003; 83605; 83690; 85025; 85610; 86140; 96374; 99283; J1885

== ENCOUNTER 2018-06-30 07:47 | Emergency (ER) | payer OTHER ==
[2018-06-30] MEDS ORDERED: Ondansetron INJ* 2 MG/ML VIAL IV ONE (08:32)
[2018-06-30] MEDS ORDERED: NS 0.9% 1000 ML** 1,000 ML IV ONE (08:32)
[2018-06-30] MEDS ORDERED: Morphine 4 MG/ML VIAL (1 ml) 4 MG/ML VIAL IV ONE (08:32)
[2018-06-30 08:46] LABS: ABS Eosinophils 0.3 10^3/ul (0-0.6); ABS Lymphocytes 1.7 10^3/ul (1.0-4.8); ABS Monocytes 0.4 10^3/ul (0-0.8); ABS Neutrophils 4.7 10^3/ul (1.5-7.7); Hematocrit 39 % (35-47); Hemoglobin 13.5 g/dL (12.0-16.0); Lymphocyte % 23.5 %; Mean Corpuscular HGB Conc 34 g/dL (31-36); Mean Corpuscular Hemoglobin 29 pg (27-31); Mean Corpuscular Volume 85 fL (80-97); Mean Platelet Volume 7.4 fL (7.4-10.4); Platelet Count 303 10^3/uL (150-450); Red Blood Count 4.67 10^6 /uL (3.70-4.87); Red Cell Distribution Width 12 % (10.5-15); White Blood Count 7.1 10^3/uL (3.5-10.8)
[2018-06-30 09:09] LABS: ALT 17 U/L (7-52); AST 13 U/L (13-39); Albumin 3.8 g/dL (3.2-5.2); Albumin/Globulin Ratio 1.4 (1-3); Alkaline Phosphatase 36 U/L (34-104); Anion Gap 6 mmol/L (2-11); BUN/Creatinine Ratio 22.5 (8-20); Blood Urea Nitrogen 16 mg/dL (6-24); C Reactive Protein 15.79 mg/L (<8.01); CO2 Carbon Dioxide 26 mmol/L (22-32); Calcium 8.9 mg/dL (8.6-10.3); Chloride 107 mmol/L (101-111); EGFR African American 113.4 (>60); EGFR Non-African American 93.7 (>60); Globulin 2.7 g/dL (2-4); Glucose 111 mg/dL (70-100); Magnesium 2.2 mg/dL (1.9-2.7); Potassium 4.2 mmol/L (3.5-5.0); Sodium 139 mmol/L (135-145); Total Protein 6.5 g/dL (6.4-8.9)
[2018-06-30 09:15] LABS: HCG Pregnancy < 0.60 mIU/mL
[2018-06-30 09:54] LABS: Urine Appearance Clear; Urine Bilirubin Negative (Negative); Urine Blood Negative (Negative); Urine Color Yellow; Urine Glucose Negative (Negative); Urine Ketones Negative (Negative); Urine Nitrite Negative (Negative); Urine Protein Negative (Negative); Urine Specific Gravity 1.012 (1.010-1.030); Urine Urobilinogen Negative (Negative)
[2018-06-30] MEDS ORDERED: Metoclopramide IV* 5 MG/ML 2 ML VIAL IV ONE (10:47)
[2018-06-30] MEDS ORDERED: Iohexol 300* (CONTRAST) 10 ML SDV IV ONE (11:56)
[2018-06-30 13:52] VITALS: BP 122/71
--- NOTE | 2018-06-30 14:25 | ED ---
Abdominal Pain/Female - HPI Summary HPI Summary: Patient is a 37-year-old female with a history of cholelithiasis without cholecystitis and a Hamilton-en-Y gastric bypass which was 6 years ago, diagnosed 2 days ago. She was sent home on famotidine, Zofran and naproxen. She states despite these medications, she continues to have pain. She returns today with concern for abdominal distention, worsening right upper quadrant pain, nausea and constipation. She states she felt she had the symptoms 2 days ago, however mild. She did not however have the distention of the abdomen. She states she is very uncomfortable and is unable to sleep. She does have an appointment on with her gastric bypass surgeon. She denies any fevers, sweats, chills. She denies any emesis, however she states this is normal for her. She has had no other serious compensations with her gastric bypass. She was able to eat a smoothie yesterday, but denies any other by mouth intake since she has left the hospital. - History of Current Complaint Chief Complaint: Mark Stated Complaint: "GALLBLADDER ISSUE" PER PT Time Seen by Provider: 06/30/18 08:00 Hx Obtained From: Patient Hx Last Menstrual Period: hyster ?: No Onset/Duration: Sudden Onset Timing: Constant Severity Initially: Moderate Severity Currently: Moderate Pain Intensity: 2 Pain Scale Used: 0-10 Numeric Location: Discrete At: RUQ Radiates: No Character: Sharp, Cramping Aggravating Factor(s): Food Alleviating Factor(s): Nothing Associated Signs and Symptoms: Positive: Negative - Risk Factors Ectopic Risk Factor: Negative Ovarian Torsion Risk Factor: Negative Allergies/Adverse Reactions: Allergies Allergy/AdvReac Type Severity Reaction Status Date / Time metronidazole [From Flagyl] Allergy Rash Verified 06/28/18 08:14 PMH/Surg Hx/FS Hx/Imm Hx Previously Healthy: Yes Endocrine/Hematology History: Denies: Hx Diabetes - hypoglycemia Cardiovascular History: Denies: Hx Hypertension History: Denies: Hx Renal Disease Neurological History: Reports: Hx Seizures Psychiatric History: Reports: Hx Anxiety, Hx Depression - Cancer History Cancer Type, Location and Year: denies - Surgical History Surgery Procedure, Year, and Place: HYSTERECTOMY 2011, GASTRIC BYPASS 2012 - Immunization History Hx Pertussis Vaccination: No Immunizations Up to Date: Yes Infectious Disease History: No Infectious Disease History: Denies: Hx Clostridium Difficile, Hx Hepatitis, Hx Human Immunodeficiency Virus (HIV), Hx of Known/Suspected MRSA, Hx Shingles, Hx Tuberculosis, Hx Known/ Suspected VRE, Hx Known/Suspected VRSA, History Other Infectious Disease, Traveled Outside the [place] in Last 30 Days - Family History Known Family History: Positive: Hypertension, Diabetes - Social History Occupation: Employed Full-time Lives: With Family Alcohol Use: None Alcohol Amount: UNABLE TO OBTAIN Hx Substance Use: No Substance Use Type: Reports: None Substance Use Comment - Amount & Last Used: UNABLE TO OBTAIN Hx Tobacco Use: No Smoking Status (MU): Never Smoked Tobacco Review of Systems Constitutional: Negative Negative: Fever, Chills, Fatigue Negative: Palpitations, Chest Pain Negative: Shortness Of Breath, Cough Positive: Abdominal Pain, Nausea. Negative: Vomiting, Diarrhea Genitourinary: Negative Positive: no symptoms reported, see HPI Negative: Arthralgia, Myalgia Skin: Negative Neurological: Negative All Other Systems Reviewed And Are Negative: Yes Physical Exam Triage Information Reviewed: Yes Vital Signs On Initial Exam: Initial Vitals Temp Pulse Resp BP Pulse Ox 96.8 F 72 18 111/69 99 06/30/18 07:49 06/30/18 07:49 06/30/18 07:49 06/30/18 07:49 06/30/18 07:49 Vital Signs Reviewed: Yes Appearance: Positive: Well-Appearing, Well-Nourished Skin: Positive: Skin Color Reflects Adequate Perfusion Head/Face: Positive: Normal Head/Face Inspection Eyes: Positive: Normal, EOMI, ILIANA, Conjunctiva Clear Neck: Positive: Supple, Nontender, No Lymphadenopathy Respiratory/Lung Sounds: Positive: Clear to Auscultation, Breath Sounds Present Cardiovascular: Positive: RRR, Pulses are Symmetrical in both Upper and Lower Extremities Abdomen Description: Positive: Distended, Other: - pain to RUQ. Negative: CVA Tenderness (R), CVA Tenderness (L) Musculoskeletal: Positive: Normal, Strength/ROM Intact Neurological: Positive: Sensory/Motor Intact, Alert, Oriented to Person Place, Time Psychiatric: Positive: Affect/Mood Appropriate Diagnostics - Vital Signs Vital Signs Temp Pulse Resp BP Pulse Ox 06/30/18 13:52 97 F 64 16 122/71 100 06/30/18 13:41 122/71 06/30/18 13:08 63 111/59 96 06/30/18 13:00 61 96 06/30/18 12:38 59 103/57 95 06/30/18 12:08 49 118/57 96 06/30/18 12:00 56 96 06/30/18 11:38 64 105/60 99 06/30/18 11:08 53 113/65 95 06/30/18 11:00 53 94 06/30/18 10:08 46 108/66 96 06/30/18 10:00 48 97 06/30/18 09:38 52 103/61 96 06/30/18 09:20 18 06/30/18 09:00 64 96 06/30/18 08:41 69 115/68 97 06/30/18 08:08 66 119/72 98 06/30/18 08:02 69 99 06/30/18 07:49 96.8 F 72 18 111/69 99 - Laboratory Lab Results: Lab Results 06/30/18 06/30/18 06/30/18 Range/Units 08:37 08:37 08:37 WBC 7.1 (3.5-10.8) 10^3/uL RBC 4.67 (3.70-4.87) 10^6 /uL Hgb 13.5 (12.0-16.0) g/dL Hct 39 (35-47) % MCV 85 (80-97) fL MCH 29 (27-31) pg MCHC 34 (31-36) g/dL RDW 12 (10.5-15) % Plt Count 303 (150-450) 10^3/uL MPV 7.4 (7.4-10.4) fL Neut % (Auto) 65.8 % Lymph % (Auto) 23.5 % Cole % (Auto) 6.1 % Eos % (Auto) 4.0 % Baso % (Auto) 0.6 % Absolute Neuts (auto) 4.7 (1.5-7.7) 10^3/ul Absolute Lymphs (auto) 1.7 (1.0-4.8) 10^3/ul Absolute Monos (auto) 0.4 (0-0.8) 10^3/ul Absolute Eos (auto) 0.3 (0-0.6) 10^3/ul Absolute Basos (auto) 0.0 (0-0.2) 10^3/ul Absolute Nucleated RBC 0.0 10^3/ul Nucleated RBC % 0.0 INR (Anticoag Therapy) 1.00 (0.82-1.09) Sodium 139 (135-145) mmol/L Potassium 4.2 (3.5-5.0) mmol/L Chloride 107 (101-111) mmol/L Carbon Dioxide 26 (22-32) mmol/L Anion Gap 6 (2-11) mmol/L BUN 16 (6-24) mg/dL Creatinine 0.71 (0.51-0.95) mg/dL Est GFR ( Amer) 113.4 (>60) Est GFR (Non-Af Amer) 93.7 (>60) BUN/Creatinine Ratio 22.5 H (8-20) Glucose 111 H (70-100) mg/dL POC Glucose (mg/dL) (70-100) mg/dL Lactic Acid (0.5-2.0) mmol/L Calcium 8.9 (8.6-10.3) mg/dL Magnesium 2.2 (1.9-2.7) mg/dL Total Bilirubin 0.40 (0.2-1.0) mg/dL AST 13 (13-39) U/L ALT 17 (7-52) U/L Alkaline Phosphatase 36 (34-104) U/L C-Reactive Protein 15.79 H (<8.01) mg/L Total Protein 6.5 (6.4-8.9) g/dL Albumin 3.8 (3.2-5.2) g/dL Globulin 2.7 (2-4) g/dL Albumin/Globulin Ratio 1.4 (1-3) Lipase 24 (11.0-82.0) U/L Beta HCG, Quant < 0.60 mIU/mL Urine Color Urine Appearance Urine pH (5-9) Ur Specific [place] (1.010-1.030) Urine Protein (Negative) Urine Ketones (Negative) Urine Blood (Negative) Urine Nitrate (Negative) Urine Bilirubin (Negative) Urine Urobilinogen (Negative) Ur Leukocyte Esterase (Negative) Urine Glucose (Negative) 06/30/18 06/30/18 06/30/18 Range/Units 08:37 09:29 13:45 WBC (3.5-10.8) 10^3/uL RBC (3.70-4.87) 10^6 /uL Hgb (12.0-16.0) g/dL Hct (35-47) % MCV (80-97) fL MCH (27-31) pg MCHC (31-36) g/dL RDW (10.5-15) % Plt Count (150-450) 10^3/uL MPV (7.4-10.4) fL Neut % (Auto) % Lymph % (Auto) % Cole % (Auto) % Eos % (Auto) % Baso % (Auto) % Absolute Neuts (auto) (1.5-7.7) 10^3/ul Absolute Lymphs (auto) (1.0-4.8) 10^3/ul Absolute Monos (auto) (0-0.8) 10^3/ul Absolute Eos (auto) (0-0.6) 10^3/ul Absolute Basos (auto) (0-0.2) 10^3/ul Absolute Nucleated RBC 10^3/ul Nucleated RBC % INR (Anticoag Therapy) (0.82-1.09) Sodium (135-145) mmol/L Potassium (3.5-5.0) mmol/L Chloride (101-111) mmol/L Carbon Dioxide (22-32) mmol/L Anion Gap (2-11) mmol/L BUN (6-24) mg/dL Creatinine (0.51-0.95) mg/dL Est GFR ( Amer) (>60) Est GFR (Non-Af Amer) (>60) BUN/Creatinine Ratio (8-20) Glucose (70-100) mg/dL POC Glucose (mg/dL) 85 (70-100) mg/dL Lactic Acid 1.1 (0.5-2.0) mmol/L Calcium (8.6-10.3) mg/dL Magnesium (1.9-2.7) mg/dL Total Bilirubin (0.2-1.0) mg/dL AST (13-39) U/L ALT (7-52) U/L Alkaline Phosphatase (34-104) U/L C-Reactive Protein (<8.01) mg/L Total Protein (6.4-8.9) g/dL Albumin (3.2-5.2) g/dL Globulin (2-4) g/dL Albumin/Globulin Ratio (1-3) Lipase (11.0-82.0) U/L Beta HCG, Quant mIU/mL Urine Color Yellow Urine Appearance Clear Urine pH 7.0 (5-9) Ur Specific [place] 1.012 (1.010-1.030) Urine Protein Negative (Negative) Urine Ketones Negative (Negative) Urine Blood Negative (Negative) Urine Nitrate Negative (Negative) Urine Bilirubin Negative (Negative) Urine Urobilinogen Negative (Negative) Ur Leukocyte Esterase Negative (Negative) Urine Glucose Negative (Negative) Result Diagrams: 06/30/18 08:37 06/30/18 08:37 Lab Statement: Any lab studies that have been ordered have been reviewed, and results considered in the medical decision making process. Abdominal Pain Fem Course/Dx - Course Course Of Treatment: Physical examination, the patient's evaluated for abdominal distention, nausea without emesis, constipation and worsening RUQ pain since being discharged from hospital 2 days ago. She states she is concerned that she is unable to get anything down and she has diabetes. She states her sugars fluctuate frequently and if she is unable to eat, she usually gets lightheaded. She denies the symptoms, however has had only a smoothie in the past 2 days. Physical examination, the abdomen appears distended, however I 'm not sure this is at her baseline. She is endorsing nausea at 7/10. His endorsing RUQ pain without pain otherwise. Last bowel movement 3 days ago. Gallbladder ultrasound obtained to assess for worsening symptoms, possibly cholecystitis or choledocholithiasis. The ultrasound image appeared similar to the previous image him 2 days ago. Labs are obtained and are okay with no white count. Discussed case with Dr. Mendoza who suggested a CT abdomen and pelvis due to abdominal distention. CT abdomen and pelvis completed and shows no acute abnormalities. On arrival to the ED, the patient is given Zofran and morphine with good effect. Discussed treatment options with the patient. She states she would like to be discharged home and follow up with her regular surgeon in [place] on as scheduled. I have offered to give her a 3 day supply of tramadol for her symptoms and she currently has Zofran at home. - Diagnoses Provider Diagnoses: Cholelithiases Discharge - Sign-Out/Discharge Documenting (check all that apply): Patient Departure Patient Received Moderate/Deep Sedation with Procedure: No - Discharge Plan Condition: Stable Disposition: HOME Prescriptions: traMADol TAB* [Ultram*] 50 mg PO Q8H PRN #12 tab MDD 3 PRN Reason: Pain Referrals: Tarik Ayala [facility] [Primary Care Provider] - Additional Instructions: Follow-up with your surgeon in [place] on as scheduled Tramadol up to 3 times daily as needed for pain You may also start with Tylenol 3 times daily to see if this helps your pain Heat to the area may help Very small meals and avoid any fatty foods Avoid any foods that need to be broken down such as meat or complex carbohydrates. - Billing Disposition and Condition Condition: STABLE Disposition: Home
== END 2018-06-30 13:52 | disposition home or self-care (01) ==
LOC: ED 07:47
DX: K80.20 Calculus of gallbladder without cholecystitis without obstruction (principal); R16.2 Hepatomegaly with splenomegaly, not elsewhere classified; K76.0 Fatty (change of) liver, not elsewhere classified; K83.8 Other specified diseases of biliary tract; R11.0 Nausea; Z32.02 Encounter for pregnancy test, result negative; E11.9 Type 2 diabetes mellitus without complications; Z98.84 Bariatric surgery status; Z90.710 Acquired absence of both cervix and uterus; Z88.1 Allergy status to other antibiotic agents
CPT/HCPCS: 36415; 74177; 76705; 80053; 81003; 83605; 83690; 83735; 84702; 85025; 85610; 86140; 96361; 96374; 96375; 99284; J2270; J2405; J2765; Q9967

== ENCOUNTER 2018-07-01 01:02 | Inpatient (IN) | payer OTHER ==
[2018-07-01] MEDS ORDERED: NS 0.9% 1000 ML** 1,000 ML IV ONE (01:38)
[2018-07-01] MEDS ORDERED: Ketorolac INJ* 30 MG/ML 1 ML VIAL IV PUSH ONE (01:41)
[2018-07-01 02:01] LABS: ABS Eosinophils 0.1 10^3/ul (0-0.6); ABS Lymphocytes 1.3 10^3/ul (1.0-4.8); ABS Monocytes 0.7 10^3/ul (0-0.8); ABS Neutrophils 8.5 10^3/ul (1.5-7.7); Eosinophil % 1.3 %; Hematocrit 40 % (35-47); Hemoglobin 13.6 g/dL (12.0-16.0); Lymphocyte % 12.4 %; Mean Corpuscular HGB Conc 34 g/dL (31-36); Mean Corpuscular Hemoglobin 29 pg (27-31); Mean Corpuscular Volume 85 fL (80-97); Mean Platelet Volume 7.9 fL (7.4-10.4); Platelet Count 337 10^3/uL (150-450); Red Blood Count 4.72 10^6 /uL (3.70-4.87); Red Cell Distribution Width 12 % (10.5-15); White Blood Count 10.7 10^3/uL (3.5-10.8)
[2018-07-01 02:19] LABS: Albumin 3.9 g/dL (3.2-5.2); Albumin/Globulin Ratio 1.4 (1-3); BUN/Creatinine Ratio 18.3 (8-20); EGFR African American 113.4 (>60); EGFR Non-African American 93.7 (>60); Globulin 2.7 g/dL (2-4); Potassium 3.9 mmol/L (3.5-5.0); Total Bilirubin 0.6 mg/dL (0.2-1.0); Total Protein 6.6 g/dL (6.4-8.9)
--- NOTE | 2018-07-01 02:32 | ED ---
Abdominal Pain/Female - HPI Summary HPI Summary: Patient is a 37 y/o F presenting to ED via EMS with complaints of RUQ pain since three days ago. She was evaluated three days ago at [facility] for Sx and was diagnosed with cholelithiases. Patient was discharged to home with medications and instructed to follow up with surgery. Patient returned to [facility] on 06/30/18 for evaluation as patient was still experiencing pain. CT Abd/pel and repeat US were done. US is reported to have been similar to US done 06/28/18, CT ABD/PEL reported to have shown no acute abnormalities. Patient's pain was controlled, she was discharged to home and instructed to follow up with surgery. Patient returns today, 07/01/18, with complaints of returned RUQ pain and nausea. However , she denies vomiting. She notes that her last meal was two bites of banana and a single bite of toast. Pain has been constant since onset and is similar to her previous episodes of pain. PSHx of hysterectomy. She had taken naproxen and zofran [employer] with minimal relief. EMS provided morphine 10 mg and zofran 4 mg. In the room, she states she is still experiencing pain. On triage, pain is rated 7/ 10. Nothing is noted to aggravate/alleviate Sx. Home medications and allergies are reviewed. - History of Current Complaint Chief Complaint: EDAbdPain Stated Complaint: "ABD PAIN" PER EMS Time Seen by Provider: 07/01/18 01:32 Hx Obtained From: Patient Hx Last Menstrual Period: hyster Onset/Duration: Lasting Days - three days ago onset, Still Present Timing: Days - three days ago onset Severity Currently: Severe Pain Intensity: 7 Pain Scale Used: 0-10 Numeric - 7/10 Location: Discrete At: RUQ Aggravating Factor(s): Nothing Alleviating Factor(s): Nothing Associated Signs and Symptoms: Positive: Nausea. Negative: Vomiting Allergies/Adverse Reactions: Allergies Allergy/AdvReac Type Severity Reaction Status Date / Time metronidazole [From Flagyl] Allergy Rash Verified 06/28/18 08:14 PMH/Surg Hx/FS Hx/Imm Hx Endocrine/Hematology History: Denies: Hx Diabetes - hypoglycemia Cardiovascular History: Denies: Hx Hypertension History: Denies: Hx Renal Disease Neurological History: Reports: Hx Seizures Psychiatric History: Reports: Hx Anxiety, Hx Depression - Cancer History Cancer Type, Location and Year: denies - Surgical History Surgery Procedure, Year, and Place: HYSTERECTOMY 2011, GASTRIC BYPASS 2013 Infectious Disease History: No Infectious Disease History: Denies: Hx Clostridium Difficile, Hx Hepatitis, Hx Human Immunodeficiency Virus (HIV), Hx of Known/Suspected MRSA, Hx Shingles, Hx Tuberculosis, Hx Known/ Suspected VRE, Hx Known/Suspected VRSA, History Other Infectious Disease, Traveled Outside the [place] in Last 30 Days - Family History Known Family History: Positive: Hypertension, Diabetes - Social History Alcohol Use: None Alcohol Amount: UNABLE TO OBTAIN Hx Substance Use: No Substance Use Type: Reports: None Substance Use Comment - Amount & Last Used: UNABLE TO OBTAIN Hx Tobacco Use: No Smoking Status (MU): Never Smoked Tobacco Review of Systems Negative: Fever - on vitals, temp is 98.3 F Positive: Abdominal Pain, Nausea. Negative: Vomiting All Other Systems Reviewed And Are Negative: Yes Physical Exam - Summary Physical Exam Summary: Appearance: well appearing, no pain distress, obese Skin: warm, dry, reflects adequate perfusion Head/face: normal Eyes: EOMI, ILIANA ENT: mucous membranes moist Neck: supple, non-tender Respiratory: CTA, breath sounds present Cardiovascular: RRR, pulses symmetrical Abdomen: + Pfeiffer's sign with guarding, moderate-severe tenderness at RUQ, soft Bowel Sounds: present Musculoskeletal: normal, strength/ROM intact Neuro: normal, sensory motor intact, A&Ox3 Triage Information Reviewed: Yes Vital Signs On Initial Exam: Initial Vitals Temp Pulse Resp BP Pulse Ox 98.3 F 64 20 112/71 95 07/01/18 01:17 07/01/18 01:17 07/01/18 01:17 07/01/18 01:17 07/01/18 01:17 Vital Signs Reviewed: Yes Diagnostics - Vital Signs Vital Signs Temp Pulse Resp BP Pulse Ox 07/01/18 01:17 98.3 F 64 20 112/71 95 - Laboratory Lab Results: Lab Results 07/01/18 07/01/18 Range/Units 01:51 01:51 WBC 10.7 (3.5-10.8) 10^3/uL RBC 4.72 (3.70-4.87) 10^6 /uL Hgb 13.6 (12.0-16.0) g/dL Hct 40 (35-47) % MCV 85 (80-97) fL MCH 29 (27-31) pg MCHC 34 (31-36) g/dL RDW 12 (10.5-15) % Plt Count 337 (150-450) 10^3/uL MPV 7.9 (7.4-10.4) fL Neut % (Auto) 79.6 % Lymph % (Auto) 12.4 % [place] % (Auto) 6.3 % Eos % (Auto) 1.3 % Baso % (Auto) 0.4 % Absolute Neuts (auto) 8.5 H (1.5-7.7) 10^3/ul Absolute Lymphs (auto) 1.3 (1.0-4.8) 10^3/ul Absolute Monos (auto) 0.7 (0-0.8) 10^3/ul Absolute Eos (auto) 0.1 (0-0.6) 10^3/ul Absolute Basos (auto) 0.0 (0-0.2) 10^3/ul Absolute Nucleated RBC 0.0 10^3/ul Nucleated RBC % 0.0 Sodium 139 (135-145) mmol/L Potassium 3.9 (3.5-5.0) mmol/L Chloride 105 (101-111) mmol/L Carbon Dioxide 26 (22-32) mmol/L Anion Gap 8 (2-11) mmol/L BUN 13 (6-24) mg/dL Creatinine 0.71 (0.51-0.95) mg/dL Est GFR ( Amer) 113.4 (>60) Est GFR (Non-Af Amer) 93.7 (>60) BUN/Creatinine Ratio 18.3 (8-20) Glucose 122 H (70-100) mg/dL Calcium 9.0 (8.6-10.3) mg/dL Total Bilirubin 0.60 (0.2-1.0) mg/dL AST 277 H (13-39) U/L ALT 320 H (7-52) U/L Alkaline Phosphatase 92 (34-104) U/L Total Protein 6.6 (6.4-8.9) g/dL Albumin 3.9 (3.2-5.2) g/dL Globulin 2.7 (2-4) g/dL Albumin/Globulin Ratio 1.4 (1-3) Lipase 21 (11.0-82.0) U/L Result Diagrams: 07/01/18 01:51 07/01/18 01:51 Lab Statement: Any lab studies that have been ordered have been reviewed, and results considered in the medical decision making process. Abdominal Pain Fem Course/Dx - Course Course Of Treatment: Patient with third visit since Friday with right upper quadrant pain and nausea. Her LFTs have now elevated likely due to choledocholithiasis. Her pain and nausea was treated here with improvement. She does not have fever or elevation of WBC. Discussed the case with GI who wishes for her to have MRCP in the morning and then they will evaluate her for possible ERCP. - Diagnoses Differential Diagnosis: Positive: Gall Bladder Disease, Hepatitis, Pancreatitis , Peptic Ulcer Disease, Urinary Tract Infection Provider Diagnoses: RUQ pain, Choledocholithiasis - Provider Notifications Discussed Care Of Patient With: Luis Angel Luis Time Discussed With Above Provider: 03:00 Instructed by Provider To: Other - 0300 - Patient's case was discussed with Dr. Luis, he recommends admission and MRCP for patient. 0304 - Patient's case was discussed with Dr. Nunn, Dr. Nunn accepts for admission. Discharge - Sign-Out/Discharge Documenting (check all that apply): Patient Departure - admit Patient Received Moderate/Deep Sedation with Procedure: No - Discharge Plan Condition: Fair Disposition: ADMITTED TO [facility] - Billing Disposition and Condition Condition: FAIR Disposition: Admitted to [facility] - Attestation Statements Document Initiated by Mark: Yes Documenting Scribe: CONNIE RENE Provider For Whom Scribe is Documenting (Include Credential): DAVIDE PHILIP MD Scribe Attestation: CONNIE Vasquez, scribed for DAVIDE PHILIP MD on 07/01/18 at 0439. Scribe Documentation Reviewed: Yes Provider Attestation: The documentation as recorded by the CONNIE connor accurately reflects the service I personally performed and the decisions made by me, DAVIDE PHILIP MD Status of Scribe Document: Viewed
[2018-07-01] MEDS ORDERED: Ondansetron INJ* 2 MG/ML VIAL IV ONE (03:02)
[2018-07-01] MEDS ORDERED: diPHENhydraMINE IV* 50 MG/ML 1 ml VIAL (BENADRYL) IV ONE (03:02)
[2018-07-01] MEDS ORDERED: hydrOXYzine HCL TAB* 25 MG PO PRN (03:30)
[2018-07-01] MEDS ORDERED: Polyethylene Glycol 3350* 17 GM PACKET PO PRN (03:33)
[2018-07-01] MEDS ORDERED: Docusate CAP* 100 MG PO PRN (03:33)
[2018-07-01] MEDS: Lactated Ringers 1000 ML Bag* 1,000 ML IV SCH ×2 (05:02→13:47)
[2018-07-01] MEDS: Ondansetron INJ* 2 MG/ML VIAL IV PRN ×2 (05:13→09:48)
[2018-07-01] MEDS: Ketorolac INJ* 30 MG/ML 1 ML VIAL IV PUSH PRN ×3 (05:43→23:33)
[2018-07-01] MEDS: Morphine INJ* 2 MG/ML 1 ML SYRINGE (TWO MG - NEW SYRINGE VERSION) IV PRN ×2 (05:44→09:37)
--- NOTE | 2018-07-01 06:29 | HP ---
CC: Tarik Ayala NP* HISTORY AND PHYSICAL: DATE OF ADMISSION: 07/01/18 TIME OF EVALUATION: 0330 PRIMARY CARE PHYSICIAN: Tarik Ayala NP. CHIEF COMPLAINT: Right upper quadrant pain. HISTORY OF PRESENT ILLNESS: This is a 37-year-old female with past medical history of gastric bypass and morbid obesity who presents to the emergency room with persistent right upper quadrant pain. The patient states she woke up on 06/28/18, with right upper quadrant pain. She came to the urgent care on 06/28/18 and they sent her to the emergency room, where she had a gallbladder ultrasound that showed enlarged echogenic liver consistent with hepatosteatosis, biliary sludge, and gallstones No biliary ductal dilatation was noted. Dr. Mendoza was contacted and they recommended followup with her bariatric surgeon. The patient was scheduled to see her bariatric surgeon on , 07/02/18. She was told they would be more comfortable since they did her surgery before. However, she returned to the emergency room for persistent abdominal pain on 06/30/18. She again had another gallbladder ultrasound done that showed cholelithiasis without evidence for acute cholecystitis, slight prominence of the common bile duct, similar to the prior study. Dr. Mendoza from surgery was again contacted and recommended abdominal and pelvis CT that showed no evidence for acute intraabdominal abnormality, hepatosplenomegaly and hepatic steatosis. The patient was again discharged for followup with her bariatric surgeon on 07/02/18. The patient has continued to have right upper quadrant pain with nausea and decreased appetite. She came back to the emergency room for further evaluation and now has elevated LFTs. She is not having any vomiting. No fever. She has had some chills. She had a firm bowel movement this morning, but her pain has persisted. Nothing seems to make it worse or better. No chest pain or shortness of breath. No urinary symptoms. No changes in her weight. Otherwise, remaining review of systems is negative. As mentioned, the patient had labs, found to have elevated LFTs. She was given Toradol and [address] Luis from GI was contacted and recommended an MRCP and admission. Otherwise, remaining review of systems is negative. PAST MEDICAL HISTORY: 1. History of gastric bypass in 2011. 2. History of hysterectomy in 2010. 3. Anxiety. 4. Depression. 5. Findings on imaging of hepatosteatosis and hepatosplenomegaly. MEDICATIONS: 1. Hydroxyzine 50 mg b.i.d. as needed for anxiety. 2. Citalopram 40 mg p.o. daily. ALLERGIES: FLAGYL, she developed a rash. FAMILY HISTORY: Mother is alive with diabetes. Father unknown. SOCIAL HISTORY: The patient lives at home with her 4 children. She reports that she is a single mother. Her kids are 15, 12, 10, and 8. 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 No smoking , alcohol, or illicit drugs. Her sister, Jovana Jackson, is her healthcare proxy. Code status is full code. REVIEW OF SYSTEMS: A 14-point review of systems was as mentioned in the HPI; otherwise, negative. PHYSICAL EXAMINATION GENERAL: No acute distress, resting comfortably. VITAL SIGNS: Temp 98.3, pulse rate 62, respiratory rate is 20, oxygen saturation 94% on room air, blood pressure 109/61. HEENT: Head: Normocephalic. Pupils are equal and reactive, anicteric. Oropharynx: Mucous membranes moist. NECK: Supple. No lymphadenopathy. RESPIRATORY: Clear to auscultation. No wheezing, rhonchi, or rales. CARDIAC: Regular rate and rhythm. No murmurs, rubs, or gallops. ABDOMEN: Hypoactive bowel sounds. Soft. She had tenderness and guarding in her right upper quadrant. No peritoneal signs. EXTREMITIES: No clubbing, cyanosis, or edema; +2 DPs. NEUROLOGIC: Alert and oriented x3. No gross focal deficits. DIAGNOSTIC STUDIES/LAB DATA: Laboratory Data: White count 10.7, hemoglobin 13.6, hematocrit 40, platelets 337. Sodium 139, potassium 3.9, chloride 105, bicarb 26, BUN 13, creatinine 0.71, glucose 122. Total bilirubin 0.6, AST is 277, ALT is 320, lipase is 21. ASSESSMENT: This is a 37-year-old female with a past medical history of gastric bypass and morbid obesity who presented to the emergency room with persistent worsening of right upper quadrant pain, now with elevated LFTs. 1. Right upper quadrant pain. The patient had evidence of cholelithiasis and biliary sludge on prior ultrasound study in the past few days and now she has elevated LFTs, concerning for a common bile duct stone. No evidence of cholangitis with no elevated white count or fever. Plan: We will admit her for further workup. We will order MRCP. Continue pain control, IV fluids, and keep her n.p.o. with bowel regimen and follow up with further GI recommendations. 2. Chronic medical problems, anxiety and depression. Continue her hydroxyzine and citalopram. 3. FEN. N.p.o. with IV fluids. 4. DVT prophylaxis. The patient scores 1. We will encourage ambulation. 5. Code status. Full code. PATIENT TIME: Greater than 40 minutes was spent doing the history and physical , more than half the time spent in direct patient contact. [id number]/[facility] #: [id number] [place]
[2018-07-01 06:31] LABS: ABS Eosinophils 0.1 10^3/ul (0-0.6); ABS Lymphocytes 1.7 10^3/ul (1.0-4.8); ABS Monocytes 0.7 10^3/ul (0-0.8); ABS Neutrophils 6.7 10^3/ul (1.5-7.7); Hematocrit 39 % (35-47); Mean Corpuscular HGB Conc 33 g/dL (31-36); Mean Corpuscular Hemoglobin 28 pg (27-31); Mean Corpuscular Volume 86 fL (80-97); Mean Platelet Volume 7.7 fL (7.4-10.4); Nucleated Red Blood Cells % 0.2; Platelet Count 325 10^3/uL (150-450); Red Cell Distribution Width 12 % (10.5-15); White Blood Count 9.3 10^3/uL (3.5-10.8)
[2018-07-01 06:46] LABS: Albumin 3.7 g/dL (3.2-5.2); Albumin/Globulin Ratio 1.4 (1-3); BUN/Creatinine Ratio 17.1 (8-20); Calcium 8.5 mg/dL (8.6-10.3); EGFR African American 115.2 (>60); EGFR Non-African American 95.2 (>60); Globulin 2.7 g/dL (2-4); Potassium 4.5 mmol/L (3.5-5.0); Total Bilirubin 0.6 mg/dL (0.2-1.0); Total Protein 6.4 g/dL (6.4-8.9)
[2018-07-01] MEDS: Citalopram TAB* 40 MG PO SCH (09:45)
[2018-07-01] MEDS ORDERED: Morphine INJ* 2 MG/ML 1 ML SYRINGE (TWO MG - NEW SYRINGE VERSION) IV PRN (09:49)
[2018-07-01 10:13] LABS: Urine Appearance Cloudy; Urine Bilirubin Negative (Negative); Urine Blood Negative (Negative); Urine Color Yellow; Urine Glucose Negative (Negative); Urine Ketones Negative (Negative); Urine Nitrite Negative (Negative); Urine Protein Negative (Negative); Urine Specific Gravity 1.017 (1.010-1.030); Urine Urobilinogen Positive (Negative)
[2018-07-01] MEDS ORDERED: HYDROmorphone INJ1* 1 MG/ML SYRINGE IV SLOW PU PRN (11:34)
[2018-07-01] MEDS ORDERED: Scopolamine 1.5 mg* PATCH TRANSDERM SCH (12:00)
[2018-07-01 12:15] LABS: Hepatitis B Surface Antigen Nonreactive (Nonreactive)
[2018-07-01 12:38] LABS: Hepatitis C Antibody Nonreactive (Nonreactive)
--- NOTE | 2018-07-01 13:00 | PN ---
Progress Note - Progress Note Date of Service: 07/01/18 Note: Brief Surgery Note (full consult dictated): 37 yo female, 7 yrs s/p mady en y gastric bypass w/ onset of acute RUQ pain early Friday a.m. Seen at urgent care. W/u included US which showed cholelithiasis but w/o signs of acute cholecystitis (though GB wall measured 2.8 cm by US). Pain has persisted and is steady. No improvement from morphine 2 mg. Current pain level 10/10. CBD was dilated at 7 mm and transaminases are in the 300's. Total bili is normal as is lipase. US as above. CT A&P: nothing additional of acute nature. I do believe this represents acute biliary colic, though MRCP (already ordered) is reasonable considering the dilated CBD. The transaminases are also somewhat atypical. Acute hepatitis panel is pend. Discussed w/ Dr. Faustin. Will order Dilaudid for pain. Await MRCP. Repeat labs in a.m. then surgery (lap cholecystectomy) as indicated.
[2018-07-01] MEDS: HYDROmorphone INJ1* 1 MG/ML SYRINGE IV SLOW PU PRN ×3 (13:41→20:02)
--- NOTE | 2018-07-01 15:46 | CONS ---
GASTROENTEROLOGY CONSULT: DATE OF CONSULT: 07/01/18 CONSULTING PHYSICIAN: Dr. Jeffrey Faustin.* REASON FOR CONSULT: Epigastric pain and elevated transaminases with bilirubin normal at 0.6. HISTORY: This 37-year-old woman who is status post gastric bypass for obesity ( 2011, [facility] in [place]) developed acute epigastric and right upper quadrant pain at 4 a.m. on Friday morning, 06/28/18. She came to the emergency room and nothing specific was found on exam and her LFTs were normal. She came the next day and again her LFTs were normal and then with continuing pain late in the evening of 06/30/18, she came to the emergency room and had labs at 2 a.m. on 07/01/18 and her ALT was 320. Gastroenterology was contacted and she was admitted for evaluation. She denies having any pain like this before. There is a strong family history of gallbladder disease with her mother, sister and several aunts having cholecystectomies. Her gallbladder was normal before the bariatric surgery. There has been no fever, rash, or joint pains. She does not recall any prior gastrointestinal workups or any endoscopy prior to her gastric bypass. PAST MEDICAL HISTORY: 1. Morbid obesity. 2. Status post gastric bypass - 3 days in the hospital. 3. Hysterectomy - (ovaries left in place) for excessive bleeding. 4. Depression. MEDICATIONS: At home: 1. Hydroxyzine. 2. Citalopram 40. ALLERGIES: FLAGYL - she reports a rash, details uncertain. FAMILY HISTORY: Maternal tor with strong gallbladder disease. SOCIAL HISTORY: She has 4 children, ages 15 down to 8. 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 She does not smoke. REVIEW OF SYSTEMS: No history of seizure, neurologic disease, MS, arrhythmias, syncope, SC, hepatitis, prior jaundice, constipation, or bowel irregularities. PHYSICAL EXAM: She is a morbidly obese woman, in bed, having received Dilaudid. She reports right upper quadrant distress. HEENT exam is unremarkable. She is anicteric. She is in some distress. She has no adenopathy. Her lungs are clear and heart sounds are regular. The abdomen is obese. Bowel sounds are present and normal. She is tender in the right upper quadrant, though there is no involuntary guarding. The abdomen is soft, but again there is focal tenderness in the right upper quadrant. Extremities show no edema or asymmetry. Neurologic is nonfocal. She is somewhat sedated. DIAGNOSTIC STUDIES/LAB DATA: This morning at 6 a.m., white count 9.3, hemoglobin 13.0, platelets 325. ALT 360, alkaline phosphatase 90, and bilirubin 0.6. MRCP pending. IMPRESSION: This morbidly obese woman who is 7 years out from gastric bypass has pain characteristic of biliary colic. With the elevated LFT, there is probably a small stone in the common bile duct. Its full implications are yet to be determined and serial LFTs and an MRCP will help in decision making. Standard ERCP approach to the papilla is not possible at this time and decision making may be difficult. [id number]/[facility] #: [id number] SHERMAN
[2018-07-01] MEDS ORDERED: ZOSYN 3.375 GM x ONE DOSE over 30 miuntes IVPB ×2 (17:30)
--- NOTE | 2018-07-01 17:43 | CONS ---
CC: Tarik Ayala, UCHE, [employer]ANT* SURGICAL CONSULTATION NOTE: DATE OF CONSULT: 07/01/18 ATTENDING SURGEON: Dr. Nick Faustin CHIEF COMPLAINT: Abdominal pain. HISTORY OF PRESENT ILLNESS: This is a 37-year-old morbidly obese female who is 7 years status post laparoscopic Hamilton-en-Y gastric bypass done at [facility] in [place]. She was awakened with severe right upper quadrant and epigastric pain at 4 a.m. Friday morning. She describes this as sharp and constant. She admits to nausea, but denies vomiting or dry heaves. She has had some chills but denies fever. Her last bowel movement was 06/30/18 and described as hard. She has not had any urinary symptoms including dysuria, hematuria or dark urine. She reports headache and some intermittent chest pain , but denies any breathing complaints. She underwent initial workup on which showed essentially normal labs including liver function tests and an ultrasound showing gallstones but no signs of acute cholecystitis. The bile duct was measured at 0.4 cm. She was discharged from the ED, but then returned on 06/30/18 with persistent complaints of pain. Repeat ultrasound again showed cholelithiasis without evidence of cholecystitis (though her gallbladder wall was measured at 2.8 mm in thickness). Common bile duct was now measured at 7 mm which was an increase from the prior study. In addition, her transaminases were significantly elevated with repeat this morning showing further elevation. Her total bilirubin has been normal throughout the course and her lipase was also normal. CT scan from 06/30/18 showed no additional acute findings. Her family history is strongly positive for gallbladder disease. She has been seen by gastroenterology and MRCP is pending. PAST MEDICAL HISTORY: Morbid obesity (initial weight loss of 120 pounds after surgery with subsequent regain of 80 pounds), anxiety and depression. PAST SURGICAL HISTORY: Other surgeries include subtotal vaginal hysterectomy for benign disease (she still has ovaries). No surgical anesthesia complications. DRUG ALLERGIES: METRONIDAZOLE (rash). CURRENT MEDICATIONS: 1. Citalopram daily. 2. Hydroxyzine p.r.n. (does not use even weekly). 3. Multivitamin daily. 4. Dietary supplement for weight loss. Family and social history are not repeated here. She admission history and physical. REVIEW OF SYSTEMS: Per the HPI, otherwise, as per the admission history and physical. PHYSICAL EXAM: Height 5 feet 8 inches, weight 260 pounds, BMI 40. Temperature 97.9, blood pressure 132/66, pulse 52, respirations 16. General: Well- nourished, morbidly obese female, in moderate distress secondary to right upper quadrant and epigastric pain. At times during our interview, she needed to sit up and lean forward secondary to the pain which she states is 10/10 (she has had no improvement after 2 mg morphine). Skin: Warm and dry. No suspicious rashes or lesions. HEENT: Pupils equal, round, and reactive. EOMs intact. No conjunctival pallor or scleral icterus. Heart: Regular rate and rhythm. No murmur noted. Lungs: Clear to auscultation. No rales or wheezes. Abdomen: Bowel sounds present, obese, soft with moderate tenderness in the right upper quadrant though without palpable mass, guarding, or rigidity. The remainder of the abdomen is soft and nontender. Genitalia and rectal: Not done. Back: No spinous process or CVA tenderness. Extremities: No edema. Neurological: Grossly intact. LABORATORY DATA: Laboratory of note, initial white blood cell count 10,700 with repeat of 9300, hemoglobin of 13. Initial AST 277 with repeat of 322, initial ALT of 320 with repeat of 360. Total bilirubin 0.6, lipase 21. IMAGING: As noted above which was viewed personally by myself and/or Dr. Faustin. IMPRESSION: Right upper quadrant pain, possibly representing biliary colic. PLAN: MRCP is ordered and pending. An acute hepatitis panel was negative. The patient understands that if the MRCP is negative for common bile duct stone then we may be able to proceed with cholecystectomy soon thereafter. However, if there is a stone, the patient understands that she may require transfer to another institution to perform intraoperative ERCP. Until then we will do our best to help with pain management and follow up on her pending studies as well as repeat lab work in the morning of 07/02/18. Case was discussed with Dr. Faustin who will also see the patient. ОЛЕГ SILVA [id number]/[facility] #: [id number] SHERMAN
[2018-07-01] MEDS: D5W 1/2 NS 1000 ML BAG* 1,000 ML IV SCH (17:45)
--- NOTE | 2018-07-01 18:50 | PN ---
Subjective Date of Service: 07/01/18 Interval History: Pain this AM rebounding before q4 interval of morphine reluctant to engage in conversation but does so after some time Only wants to know "when are they taking this thing out" Later in day at [facility] - imaging unable to be performed 2/2 earring that cannot be removed. I discussed importance of this test and pt agreeable to remove earring (cut). She understood that my recommendation was for the test but in no way could I make her or even recommend cutting off her jewelry. She opted to have earing cut after understanding plan of care would be impacted by lack of imaging Objective Active Medications: Citalopram Hydrobromide (Celexa Tab*) 40 mg PO DAILY [facility] Last Admin: 07/01/18 09:45 Dose: Not Given Docusate Sodium (Colace Cap*) 100 mg PO BID PRN PRN Reason: CONSTIPATION Hydromorphone HCl (Dilaudid Inj1s*) 0.5 mg IV SLOW PU Q2H PRN PRN Reason: moderate Pain Last Admin: 07/01/18 17:45 Dose: 0.5 mg Hydromorphone HCl (Dilaudid Inj1s*) 1 mg IV SLOW PU Q2H PRN PRN Reason: SEVERE PAIN Last Admin: 07/01/18 11:47 Dose: 1 mg Hydroxyzine HCl (Atarax Tab*) 50 mg PO QID PRN PRN Reason: ANXIETY Dextrose/Sodium Chloride (D5w 1/2 Ns 1000 Ml Bag*) 1,000 mls @ 100 mls/hr IV PER RATE [facility] Last Admin: 07/01/18 17:45 Dose: 100 mls/hr Piperacillin Sod/Tazobactam (Sod 3.375 gm/ Sodium Chloride) 100 mls @ 25 mls/ hr IVPB Q8H [facility] Ketorolac Tromethamine (Toradol Inj*) 30 mg IV PUSH Q6H PRN PRN Reason: PAIN Last Admin: 07/01/18 14:32 Dose: 30 mg Morphine Sulfate (Morphine Inj (Syringe))*) 2 mg IV Q2H PRN PRN Reason: PAIN - MILD Ondansetron HCl (Zofran Inj*) 4 mg IV Q4H PRN PRN Reason: NAUSEA/VOMITING Last Admin: 07/01/18 09:48 Dose: 4 mg Pharmacy Profile Note (Scopolamine Patch Remove*) 1 note PATCH OFF Q72H [facility] Polyethylene Glycol/Electrolytes (Miralax*) 17 gm PO DAILY PRN PRN Reason: CONSTIPATION Scopolamine (Transderm-Scop 1.5 Mg Patch*) 1 patch TRANSDERM Q72H [facility] Last Admin: 07/01/18 12:00 Dose: 1 patch Vital Signs - 8 hr 07/01/18 07/01/18 07/01/18 10:59 11:47 12:04 Temperature 98.4 F Pulse Rate 79 Respiratory 18 18 16 Rate Blood Pressure 121/68 (mmHg) O2 Sat by Pulse 96 Oximetry 07/01/18 07/01/18 07/01/18 12:51 13:41 14:53 Temperature Pulse Rate Respiratory 18 18 18 Rate Blood Pressure (mmHg) O2 Sat by Pulse Oximetry 07/01/18 07/01/18 07/01/18 15:16 17:45 18:32 Temperature 99.2 F Pulse Rate 94 Respiratory 16 18 18 Rate Blood Pressure 124/54 (mmHg) O2 Sat by Pulse 93 Oximetry Oxygen Devices in Use Now: None Appearance: in pain Eyes: No Scleral Icterus Ears/Nose/Mouth/Throat: NL Teeth, Lips, Gums, Clear Oropharnyx Neck: NL Appearance and Movements; NL JVP, Trachea Midline Respiratory: Symmetrical Chest Expansion and Respiratory Effort Cardiovascular: RRR Abdominal: - - RUQ pain, no rebound/gaurding Extremities: No Edema Skin: No Rash or Ulcers Neurological: Alert and Oriented x 3 Result Diagrams: 07/01/18 06:06 07/01/18 06:06 Additional Lab and Data: Lab Results 07/01/18 07/01/18 Range/Units 01:51 01:51 WBC 10.7 (3.5-10.8) 10^3/uL RBC 4.72 (3.70-4.87) 10^6 /uL Hgb 13.6 (12.0-16.0) g/dL Hct 40 (35-47) % MCV 85 (80-97) fL MCH 29 (27-31) pg MCHC 34 (31-36) g/dL RDW 12 (10.5-15) % Plt Count 337 (150-450) 10^3/uL MPV 7.9 (7.4-10.4) fL Neut % (Auto) 79.6 % Lymph % (Auto) 12.4 % [place] % (Auto) 6.3 % Eos % (Auto) 1.3 % Baso % (Auto) 0.4 % Absolute Neuts (auto) 8.5 H (1.5-7.7) 10^3/ul Absolute Lymphs (auto) 1.3 (1.0-4.8) 10^3/ul Absolute Monos (auto) 0.7 (0-0.8) 10^3/ul Absolute Eos (auto) 0.1 (0-0.6) 10^3/ul Absolute Basos (auto) 0.0 (0-0.2) 10^3/ul Absolute Nucleated RBC 0.0 10^3/ul Nucleated RBC % 0.0 Sodium 139 (135-145) mmol/L Potassium 3.9 (3.5-5.0) mmol/L Chloride 105 (101-111) mmol/L Carbon Dioxide 26 (22-32) mmol/L Anion Gap 8 (2-11) mmol/L BUN 13 (6-24) mg/dL Creatinine 0.71 (0.51-0.95) mg/dL Est GFR ( Amer) 113.4 (>60) Est GFR (Non-Af Amer) 93.7 (>60) BUN/Creatinine Ratio 18.3 (8-20) Glucose 122 H (70-100) mg/dL Calcium 9.0 (8.6-10.3) mg/dL Total Bilirubin 0.60 (0.2-1.0) mg/dL AST 277 H (13-39) U/L ALT 320 H (7-52) U/L Alkaline Phosphatase 92 (34-104) U/L Total Protein 6.6 (6.4-8.9) g/dL Albumin 3.9 (3.2-5.2) g/dL Globulin 2.7 (2-4) g/dL Albumin/Globulin Ratio 1.4 (1-3) Lipase 21 (11.0-82.0) U/L Assess/Plan/Problems-Billing Assessment: 37 yo F p/w acute onset ruw pain with newly elevated transaminases since 06/28 - Patient Problems (1) Cholecystitis Comment: no fever or WBC, CT and US without e/o stranding but MRCP indicates pericholecystic fluid c/w cholecystitis Zosyn Pain control Appreciate both surgery and GI consultations NPO (2) Depression Comment: celexa (3) DVT prophylaxis Comment: scds should she go to surgery tomorrow
[2018-07-01] MEDS: Piperacillin/Tazobac ADVAN(*) 3.375 GM in NS 0.9% 100 ML* 100 ML IVPB SCH (21:36)
[2018-07-02] MEDS: HYDROmorphone INJ1* 1 MG/ML SYRINGE IV SLOW PU PRN ×2 (04:34→07:32)
[2018-07-02] MEDS: D5W 1/2 NS 1000 ML BAG* 1,000 ML IV SCH ×2 (04:36→23:34)
[2018-07-02 05:47] LABS: Hematocrit 39 % (35-47); Hemoglobin 13.1 g/dL (12.0-16.0); Mean Corpuscular HGB Conc 33 g/dL (31-36); Mean Corpuscular Hemoglobin 28 pg (27-31); Mean Corpuscular Volume 85 fL (80-97); Mean Platelet Volume 7.6 fL (7.4-10.4); Platelet Count 336 10^3/uL (150-450); Red Blood Count 4.65 10^6 /uL (3.70-4.87); Red Cell Distribution Width 12 % (10.5-15)
[2018-07-02] MEDS: Piperacillin/Tazobac ADVAN(*) 3.375 GM in NS 0.9% 100 ML* 100 ML IVPB SCH ×3 (06:06→19:39)
[2018-07-02 06:07] LABS: Albumin 3.6 g/dL (3.2-5.2); Albumin/Globulin Ratio 1.3 (1-3); BUN/Creatinine Ratio 12.9 (8-20); Calcium 8.4 mg/dL (8.6-10.3); EGFR African American 115.2 (>60); EGFR Non-African American 95.2 (>60); Globulin 2.8 g/dL (2-4); Potassium 3.3 mmol/L (3.5-5.0); Total Bilirubin 1.1 mg/dL (0.2-1.0); Total Protein 6.4 g/dL (6.4-8.9)
[2018-07-02 06:15] LABS: ABS Basophils 0.1 10^3/ul (0-0.2); ABS Eosinophils 0.1 10^3/ul (0-0.6); ABS Lymphocytes 1.3 10^3/ul (1.0-4.8); ABS Monocytes 1.9 10^3/ul (0-0.8); ABS Neutrophils 15.6 10^3/ul (1.5-7.7); Eosinophil % 0.5 %
[2018-07-02] MEDS: Ketorolac INJ* 30 MG/ML 1 ML VIAL IV PUSH PRN ×2 (07:32→18:36)
[2018-07-02] MEDS: Citalopram TAB* 40 MG PO SCH (08:46)
[2018-07-02] MEDS ORDERED: fentaNYL* 50 MCG/ML 2 ML VIAL (100 MCG VIAL) ONE ×3 (11:44→16:29)
[2018-07-02] MEDS ORDERED: Midazolam* 1 MG/ML 2 ML VIAL (2 MG) ONE (11:44)
[2018-07-02] MEDS ORDERED: Bupivacaine 0.25% SDV PF* 10 ML VIAL INJ ONE (12:24)
--- NOTE | 2018-07-02 12:42 | PN ---
Progress Note - Progress Note Date of Service: 07/02/18 Note: Surgery Progress Note S: Patient continues to have some pain, other mulligan no complaints. O: Vital Signs: Temp Pulse Resp BP Pulse Ox 99.2 F 96 16 102/53 94 07/02/18 07:39 07/02/18 07:39 07/02/18 08:47 07/02/18 07:39 07/02/18 07:39 Laboratory Results - last 24 hr 07/01/18 07/02/18 07/02/18 06:06 05:38 05:38 WBC 19.0 H RBC 4.65 Hgb 13.1 Hct 39 MCV 85 MCH 28 MCHC 33 RDW 12 Plt Count 336 MPV 7.6 Neut % (Auto) 82.0 Lymph % (Auto) 7.0 [place] % (Auto) 10.2 Eos % (Auto) 0.5 Baso % (Auto) 0.3 Absolute Neuts (auto) 15.6 H Absolute Lymphs (auto) 1.3 Absolute Monos (auto) 1.9 H Absolute Eos (auto) 0.1 Absolute Basos (auto) 0.1 Absolute Nucleated RBC 0.0 Nucleated RBC % 0.0 Sodium 136 Potassium 3.3 L Chloride 104 Carbon Dioxide 26 Anion Gap 6 BUN 9 Creatinine 0.70 Est GFR ( Amer) 115.2 Est GFR (Non-Af Amer) 95.2 BUN/Creatinine Ratio 12.9 Glucose 156 H Calcium 8.4 L Total Bilirubin 1.10 H AST 48 H ALT 202 H Alkaline Phosphatase 71 Total Protein 6.4 Albumin 3.6 Globulin 2.8 Albumin/Globulin Ratio 1.3 Hepatitis A IgM Ab Nonreactive Hep Bs Antigen Nonreactive Hep B Core IgM Ab Nonreactive Hepatitis C Antibody Nonreactive Hepatitis C Ab Index < 0.0 Intake & Output 07/01/18 07/02/18 07/02/18 22:59 06:59 14:59 Intake Total 0 1104 Output Total 300 1000 600 Balance -300 104 -600 Weight 260 lb Intake: IV Fluids 1104 ABX - ZOSYN 107 D5W 1/2 NS 997 Oral 0 0 Output: Urine 300 1000 600 Other: # Bowel Movements 0 0 Abx: Zosyn Radiology: MRCP reviewed, no CBD stones Abd: obese, soft, non distended, tender in RUQ A/P: 37 F with morbid obesity, h/o R-Y gastric bypass with acute cholecystitis. - I discussed with patient the surgery which will be a laparoscopic, possible open cholecystectomy. I discussed the risks, benefits and alternatives. Risks include but are not limited to bleeding (which can in rare circumstances require blood transfusion or reoperation), infection (superficial, deep soft tissue), injury to nearby structures such as the intestines, liver, stomach, common bile duct, that may require further operations or procedures, bile leak and the other perioperative systemic complications. I discussed that she is at slightly higher risk for possible injury to nearby structures given her prior abdominal surgery (R-Y bypass, hysterectomy) and the possibility of having intraadbdominal adhesions. - I discussed with her that while the MRCP did not show any CBD stones, her Tbili went up slightly today. This will be trended tomorrow. If she requires any further intervention of the common bile duct such as ERCP she will have to be transferred to a tertiary care center where GI would be available to do a transgastric ERCP, given that patient has had a R-Y bypass. She understands this and wishes to proceed with surgery.
[2018-07-02] MEDS ORDERED: Famotidine IV* 10 MG/ML 2 ML (20 mg) ONE (12:43)
[2018-07-02] MEDS ORDERED: Rocuronium* 10 MG/ML VIAL ONE (12:54)
[2018-07-02] MEDS ORDERED: Propofol* 10 MG/ML 20 ML BTL ONE (12:55)
[2018-07-02] MEDS ORDERED: Dexamethasone IV* 4 MG/ML 1 ML (4 MG) ONE (12:55)
[2018-07-02] MEDS ORDERED: Lidocaine 2% PF * 5 ML VIAL ONE (12:55)
[2018-07-02] MEDS ORDERED: Calcium CHLORIDE 10% SYRINGE* 1 GM/10 ML ONE (13:29)
[2018-07-02] MEDS ORDERED: Buffered Lidocaine 1% SYRIN* 1 ML/SYRINGE INTRADERM ONE (13:54)
[2018-07-02] MEDS ORDERED: Naloxone* 0.4 MG/ML 1 ML VIAL IV PRN (13:56)
[2018-07-02] MEDS ORDERED: PROCHLORPERAZINE INJ 5 MG/ML 2 ML VIAL IV PRN (13:56)
[2018-07-02] MEDS ORDERED: HYDROcodone/ACETAMIN 5-325 MG* 1 TAB PO PRN ×2 (13:56→15:30)
[2018-07-02] MEDS ORDERED: Acetaminophen IV 1GM/100ML * 1,000 MG/100 ML VIAL IVPB ONE (13:56)
[2018-07-02] MEDS ORDERED: DiMENhydriNATE IV* 50 MG/ML VIAL IV PUSH PRN (13:56)
[2018-07-02] MEDS ORDERED: diPHENhydraMINE IV* 50 MG/ML 1 ml VIAL (BENADRYL) IV PRN (13:56)
[2018-07-02] MEDS ORDERED: Lactated Ringers 1000 ML Bag* 1,000 ML IV SCH ×2 (14:00→23:00)
[2018-07-02] MEDS ORDERED: HYDROmorphone INJ1* 1 MG/ML SYRINGE ONE (14:02)
[2018-07-02] MEDS ORDERED: Metoprolol Tartrate IV* 1 MG/ML 5 ML VIAL ONE (14:15)
--- NOTE | 2018-07-02 15:17 | OP ---
Operative Report - Blank - Operative Report Date of Operation: 07/02/18 Note: Brief Operative Note Preop Dx: acute cholecystitis Postop Dx: same Procedure: laparoscopic cholecystectomy Anesthesia: REMINGTON Surgeon: Reji Weatherization Director: ОЛЕГ Hawkins; ALISA Pfeiffer Fluids: 1600 ml RL EBL: 100 ml Specimen: gallbladder Drains: none Findings: dictated
[2018-07-02] MEDS ORDERED: Acetaminophen TAB* 325 MG PO PRN (15:30)
[2018-07-02] MEDS ORDERED: Acetaminophen IV 1GM/100ML * 100 ML ONE (16:29)
[2018-07-02] MEDS: fentaNYL* 50 MCG/ML 2 ML VIAL (100 MCG VIAL) IV PRN ×2 (16:30→16:38)
[2018-07-02] MEDS ORDERED: HYDROcodone/ACETAMIN 5-325 MG* 1 TAB ONE (16:44)
--- NOTE | 2018-07-02 17:42 | PN ---
Subjective Date of Service: 07/02/18 Interval History: Pain much improved this AM no N/V No CP, SOB Taken to OR for cholecystectomy today Objective Active Medications: Hydrocodone Bitart/Acetaminophen ([place] 5-325 Tab*) 1 tab PO ONCE PRN PRN Reason: PAIN - MODERATE Last Admin: 07/02/18 16:44 Dose: 1 tab Citalopram Hydrobromide (Celexa Tab*) 40 mg PO DAILY [facility] Last Admin: 07/02/18 08:46 Dose: Not Given Dimenhydrinate (Dramamine Iv*) 25 mg IV PUSH ONCE PRN PRN Reason: NAUSEA/VOMITING Diphenhydramine HCl (Benadryl Iv*) 25 mg IV ONCE PRN PRN Reason: ITCHING Docusate Sodium (Colace Cap*) 100 mg PO BID PRN PRN Reason: CONSTIPATION Fentanyl Citrate (Fentanyl*) 50 mcg IV Q5M PRN PRN Reason: PAIN - MODERATE Last Admin: 07/02/18 16:38 Dose: 50 mcg Hydromorphone HCl (Dilaudid Inj1s*) 0.5 mg IV SLOW PU Q2H PRN PRN Reason: moderate Pain Last Admin: 07/02/18 07:32 Dose: 0.5 mg Hydromorphone HCl (Dilaudid Inj1s*) 1 mg IV SLOW PU Q2H PRN PRN Reason: SEVERE PAIN Last Admin: 07/01/18 11:47 Dose: 1 mg Hydroxyzine HCl (Atarax Tab*) 50 mg PO QID PRN PRN Reason: ANXIETY Dextrose/Sodium Chloride (D5w 1/2 Ns 1000 Ml Bag*) 1,000 mls @ 100 mls/hr IV PER RATE [facility] Last Admin: 07/02/18 04:36 Dose: 100 mls/hr Piperacillin Sod/Tazobactam (Sod 3.375 gm/ Sodium Chloride) 100 mls @ 25 mls/ hr IVPB Q8H [facility] Last Admin: 07/02/18 06:06 Dose: 25 mls/hr Lactated Ringer's (Lactated Ringers 1000 Ml Bag*) 1,000 mls @ 125 mls/hr IV PER RATE [facility] Ketorolac Tromethamine (Toradol Inj*) 30 mg IV PUSH Q6H PRN PRN Reason: PAIN Last Admin: 07/02/18 07:32 Dose: 30 mg Morphine Sulfate (Morphine Inj (Syringe))*) 2 mg IV Q2H PRN PRN Reason: PAIN - MILD Naloxone HCl (Narcan*) 0.08 mg IV Q2M PRN PRN Reason: severe induced resp depression Ondansetron HCl (Zofran Inj*) 4 mg IV Q4H PRN PRN Reason: NAUSEA/VOMITING Last Admin: 07/01/18 09:48 Dose: 4 mg Pharmacy Profile Note (Scopolamine Patch Remove*) 1 note PATCH OFF Q72H [facility] Polyethylene Glycol/Electrolytes (Miralax*) 17 gm PO DAILY PRN PRN Reason: CONSTIPATION Prochlorperazine Edisylate (Compazine Inj*) 5 mg IV ONCE PRN PRN Reason: NAUSEA/VOMITING Scopolamine (Transderm-Scop 1.5 Mg Patch*) 1 patch TRANSDERM Q72H [facility] Last Admin: 07/01/18 12:00 Dose: 1 patch Vital Signs - 8 hr 07/02/18 07/02/18 07/02/18 15:26 15:27 15:30 Temperature 99.3 F Pulse Rate 88 86 85 Respiratory 9 22 Rate Blood Pressure 98/79 119/65 (mmHg) O2 Sat by Pulse 95 97 96 Oximetry 07/02/18 07/02/18 07/02/18 15:36 15:41 15:45 Temperature Pulse Rate 82 82 79 Respiratory 20 17 19 Rate Blood Pressure 120/65 110/67 121/71 (mmHg) O2 Sat by Pulse 95 94 95 Oximetry 07/02/18 07/02/18 07/02/18 15:51 16:30 16:38 Temperature Pulse Rate 79 Respiratory 19 18 20 Rate Blood Pressure 124/73 (mmHg) O2 Sat by Pulse 96 Oximetry 07/02/18 16:44 Temperature Pulse Rate Respiratory 14 Rate Blood Pressure (mmHg) O2 Sat by Pulse Oximetry Oxygen Devices in Use Now: None Appearance: NAD Eyes: No Scleral Icterus, PERRLA Ears/Nose/Mouth/Throat: NL Teeth, Lips, Gums, Clear Oropharnyx Neck: NL Appearance and Movements; NL JVP, Trachea Midline Respiratory: Symmetrical Chest Expansion and Respiratory Effort, Clear to Auscultation Cardiovascular: RRR Abdominal: - - RUQ TTP, no distended, +bs Skin: No Rash or Ulcers Neurological: Alert and Oriented x 3 Result Diagrams: 07/02/18 05:38 07/02/18 05:38 Additional Lab and Data: Lab Results 07/01/18 07/01/18 Range/Units 01:51 01:51 WBC 10.7 (3.5-10.8) 10^3/uL RBC 4.72 (3.70-4.87) 10^6 /uL Hgb 13.6 (12.0-16.0) g/dL Hct 40 (35-47) % MCV 85 (80-97) fL MCH 29 (27-31) pg MCHC 34 (31-36) g/dL RDW 12 (10.5-15) % Plt Count 337 (150-450) 10^3/uL MPV 7.9 (7.4-10.4) fL Neut % (Auto) 79.6 % Lymph % (Auto) 12.4 % [place] % (Auto) 6.3 % Eos % (Auto) 1.3 % Baso % (Auto) 0.4 % Absolute Neuts (auto) 8.5 H (1.5-7.7) 10^3/ul Absolute Lymphs (auto) 1.3 (1.0-4.8) 10^3/ul Absolute Monos (auto) 0.7 (0-0.8) 10^3/ul Absolute Eos (auto) 0.1 (0-0.6) 10^3/ul Absolute Basos (auto) 0.0 (0-0.2) 10^3/ul Absolute Nucleated RBC 0.0 10^3/ul Nucleated RBC % 0.0 Sodium 139 (135-145) mmol/L Potassium 3.9 (3.5-5.0) mmol/L Chloride 105 (101-111) mmol/L Carbon Dioxide 26 (22-32) mmol/L Anion Gap 8 (2-11) mmol/L BUN 13 (6-24) mg/dL Creatinine 0.71 (0.51-0.95) mg/dL Est GFR ( Amer) 113.4 (>60) Est GFR (Non-Af Amer) 93.7 (>60) BUN/Creatinine Ratio 18.3 (8-20) Glucose 122 H (70-100) mg/dL Calcium 9.0 (8.6-10.3) mg/dL Total Bilirubin 0.60 (0.2-1.0) mg/dL AST 277 H (13-39) U/L ALT 320 H (7-52) U/L Alkaline Phosphatase 92 (34-104) U/L Total Protein 6.6 (6.4-8.9) g/dL Albumin 3.9 (3.2-5.2) g/dL Globulin 2.7 (2-4) g/dL Albumin/Globulin Ratio 1.4 (1-3) Lipase 21 (11.0-82.0) U/L Assess/Plan/Problems-Billing Assessment: 37 yo F p/w acute onset ruq pain f/w cholecystitis - Patient Problems (1) Cholecystitis Comment: s/p cholecystectomy 07/02 Zosyn Pain control Appreciate both surgery and GI consultations repeat LFTs in AM to monitor bili (2) Depression Comment: celexa (3) DVT prophylaxis Comment: scds
--- NOTE | 2018-07-02 20:06 | OP ---
CC: Tarik Ayala NP * DATE OF OPERATION: 07/02/18 - ROOM #332 DATE OF : 84 SERVICE: General Surgery. SURGEON: Larissa Mendoza MD. AGITATOR OPERATOR: ОЛЕГ Aj. ANESTHESIOLOGIST: Ronnie Camarillo MD. ANESTHESIA: General endotracheal anesthesia. PRE-OP DIAGNOSIS: Acute cholecystitis. POST-OP DIAGNOSIS: Acute cholecystitis. OPERATIVE PROCEDURE: Laparoscopic cholecystectomy. ESTIMATED BLOOD LOSS: Approximately 20 cc. INTRAOPERATIVE FINDINGS: Enlarged inflamed gallbladder with adhesions to the omentum and gallstones. INDICATIONS FOR SURGERY: Ms. Ayers is a 37-year-old female with history of morbid obesity who had undergone a Hamilton-en-Y gastric bypass approximately 7 years ago as well as a hysterectomy in the past. She had presented to the emergency room complaining of right upper quadrant abdominal pain and was found to have cholelithiasis, but no evidence of cholecystitis. She returned Friday and was found at that point to have a transaminitis; therefore, she was admitted to the medical service and GI was consulted. An MRCP was ordered that did not show any common bile duct stones. Her white count went up to 19 today, confirming acute cholecystitis. Therefore informed consent was obtained for a laparoscopic cholecystectomy. She understood the risks, benefits, and alternatives of the procedure and she wished to proceed. DESCRIPTION OF PROCEDURE: The patient was brought back to the operating room and placed on the operating table in the supine position. Sequential compression devices were placed on the bilateral lower extremities for DVT prophylaxis. Antibiotic with Zosyn had been administered prior to coming to the operating room. General endotracheal anesthesia was induced. The patient's left arm was tucked. Her abdomen was prepped and draped in normal sterile fashion, and prior to beginning the procedure, a time-out was performed verifying the patient's name, MR number, and the procedure to be performed. Next, local anesthesia consisting of 0.25% Marcaine was infiltrated into the left upper quadrant. A small incision was made and the Veress needle was placed into the abdominal cavity. A saline drop test was performed, verifying that we were indeed intraabdominal. Once this was done, the abdomen was insufflated to 15 mmHg and then using the Optiview trocar, a 5 mm trocar was placed in the right upper quadrant under direct visualization. Once this was done, general inspection of the abdominal cavity showed that there was no injury that had been made upon entry with the Veress needle; therefore, the Veress needle was removed. There were also notably no adhesions to the anterior abdominal wall. Next, after infiltrating 0.25% Marcaine, the remaining trocars were placed. A 5 mm trocar was placed above the umbilicus. A 12 mm trocar was placed just to the right of the falciform and another 5 mm trocar was placed in the right mid abdomen. Next, the patient was positioned head up and right side up, and attention was turned towards the right upper quadrant. The gallbladder was not immediately visible given that there was omentum draped over the liver bed and over the gallbladder. These adhesions were very dense to the gallbladder and were taken down using cautery. Once this was done, the omentum was able to be peeled down from the gallbladder, which was noted to be very distended and firm. Therefore, the gallbladder was aspirated and clear light green fluid was removed from the gallbladder, approximately 20 cc. Once this was done, the gallbladder was more flaccid and more easily able to be lifted up over the liver. With blunt dissection, the very thick omentum was dissected off of the gallbladder itself. The gallbladder peritoneum was extremely thickened and there was a very large rind around the gallbladder, representing an acute inflammatory process. Next, another grasper was used to grab the infundibulum and retracted anteriorly and laterally, and once this was done, the peritoneum on either side of the gallbladder was divided. There was a large node of Calot that was also noted and that was taken down using electrocautery. Once this was done, the critical view was obtained with great care given that there was a significant amount of inflammation in the triangle of Calot. The critical view was obtained with the liver bed being visualized between the cystic duct and the cystic artery, and pictures were taken to confirm this. After this was done, the cystic duct and cystic artery were clipped doubly proximally and once distally and then these structures were divided. After this was done, the gallbladder was taken off of the liver bed and this was done with some difficulty given how inflamed and thickened the gallbladder was. The gallbladder was entered at one point and some of the gallstones did come out of the abdominal cavity and were suctioned out. However, once the gallbladder was completely removed from the liver bed, it was placed into an EndoCatch bag and removed from the abdomen as specimen. Great care was then turned towards obtaining hemostasis of the liver bed. Once this was done, the right upper quadrant was was irrigated several times and suctioned to confirm that there was no bleeding and all the gallstones that could be visualized were removed. The liver bed was checked again, and the clips were noted to be securely placed on the cystic duct and cystic artery, and there was no active bleeding noted on the liver bed. Therefore, attention was turned towards closing the 12 mm trocar site with 0 Vicryl using a suture passer device. Once this was done, all the remaining trocars removed under direct visualization. Desufflation was obtained. The skin was closed using 4- 0 Monocryl suture. Sterile dressing was in place. The patient's anesthesia was reversed and she was taken to the PACU in stable condition. At the end of the case, all counts were correct and I was present during the entirety of the case. [id number]/[facility] #: [id number] SHERMAN
[2018-07-02] MEDS: HYDROcodone/ACETAMIN 5-325 MG* 1 TAB PO PRN (22:07)
[2018-07-03] MEDS: Piperacillin/Tazobac ADVAN(*) 3.375 GM in NS 0.9% 100 ML* 100 ML IVPB SCH ×2 (03:23→12:13)
[2018-07-03] MEDS: Ketorolac INJ* 30 MG/ML 1 ML VIAL IV PUSH PRN ×2 (03:23→15:08)
[2018-07-03 07:20] LABS: Albumin/Globulin Ratio 1.1 (1-3); BUN/Creatinine Ratio 14.3 (8-20); Calcium 8.4 mg/dL (8.6-10.3); EGFR African American 115.2 (>60); EGFR Non-African American 95.2 (>60); Globulin 2.7 g/dL (2-4); Indirect Bilirubin 0.4 mg/dL (0.3-1.0); Potassium 3.7 mmol/L (3.5-5.0); Total Bilirubin 0.5 mg/dL (0.2-1.0); Total Protein 5.7 g/dL (6.4-8.9)
--- NOTE | 2018-07-03 07:23 | PN ---
Progress Note - Progress Note Date of Service: 07/03/18 Note: Surgery Progress Note S: Patient feels much better this morning. Has soreness over the incisions. Able to ambulate to bathroom. Has tolerated clear liquids. Does endorse a small amount of nausea. No emesis. She has been afebrile. O: Vital Signs: Temp Pulse Resp BP Pulse Ox 99.7 F 86 17 114/63 96 07/03/18 03:08 07/03/18 03:08 07/03/18 03:08 07/03/18 03:08 07/02/18 23:33 Intake & Output 07/02/18 07/03/18 07/03/18 22:59 06:59 14:59 Intake Total 1800 1909 Output Total 600 400 Balance 1200 1509 Intake: IV Fluids 1800 1469 D5W 1/2 NS 469 LR 1800 1000 IVPB 80 ABX - ZOSYN 80 Oral 360 Output: Urine 600 400 Other: # Bowel Movements 0 Labs: pending Physical exam: Abdomen- obese, soft, tender around surgical incisions, incisions c/d/i A/P: 37 F ho morbid obesity, acute cholecystitis, transaminitis and elevated bilirubin, POD 1 from lap cholecystectomy. - Labs from this morning are pending, will follow up LFTs - If Tbili is downtrending and patient is tolerating a diet and pain is controlled with oral pain medication, likely discharge this afternoon when can pick her up. She should follow up with me in 2 weeks for a post operative appointment. - Patient asked for counseling for a bariatric diet after R-Y bypass (done in [place]). We will provide educational material.
[2018-07-03] MEDS: Citalopram TAB* 40 MG PO SCH (07:55)
[2018-07-03] MEDS: HYDROcodone/ACETAMIN 5-325 MG* 1 TAB PO PRN ×2 (07:55→12:07)
[2018-07-03] MEDS: HYDROmorphone INJ1* 1 MG/ML SYRINGE IV SLOW PU PRN (08:06)
[2018-07-03 08:16] LABS: ABS Lymphocytes 1.2 10^3/ul (1.0-4.8); ABS Monocytes 0.9 10^3/ul (0-0.8); ABS Neutrophils 11.6 10^3/ul (1.5-7.7); Eosinophil % 0.1 %; Hematocrit 34 % (35-47); Hemoglobin 11.3 g/dL (12.0-16.0); Lymphocyte % 8.6 %; Mean Corpuscular HGB Conc 33 g/dL (31-36); Mean Corpuscular Hemoglobin 28 pg (27-31); Mean Corpuscular Volume 87 fL (80-97); Mean Platelet Volume 7.2 fL (7.4-10.4); Platelet Count 296 10^3/uL (150-450); Red Blood Count 3.97 10^6 /uL (3.70-4.87); Red Cell Distribution Width 13 % (10.5-15); White Blood Count 13.7 10^3/uL (3.5-10.8)
[2018-07-03 15:21] VITALS: BP 98/50
--- NOTE | 2018-07-03 21:57 | DS ---
CC: Tarik Ayala NP; Dr. Mendoza* DISCHARGE SUMMARY: DATE OF ADMISSION: 07/01/18 DATE OF DISCHARGE: 07/03/18 PRIMARY CARE PROVIDER: Tarik Ayala NP DISPOSITION ON DISCHARGE: Home. CONDITION ON DISCHARGE: Good. PRIMARY DIAGNOSIS: Cholecystitis, status post laparoscopic cholecystectomy on 07/02/18. SECONDARY DIAGNOSES: Include: 1. Anxiety. 2. Depression. MEDICATIONS AT DISCHARGE: Include: 1. Zofran 4 mg every 8 hours as needed. 2. Naproxen 250 mg twice daily as needed. 3. Multivitamin 1 cap daily. 4. Famotidine 20 mg twice daily as needed. 5. Citalopram 40 mg daily. 6. Tramadol 50 mg every 8 hours as needed for pain. 7. Atarax 25 mg 4 times a day as needed. 8. Percocet 5/325 one tab every 4 hours as needed, max daily dose is 6, dispensed by surgical team. 9. Acetaminophen 650 mg every 4 hours as needed, dispensed by surgical team. PERTINENT PROCEDURE PERFORMED DURING HOSPITAL STAY: Laparoscopic cholecystectomy on 07/02/[address] Larissa Mendoza. PERTINENT LABORATORY DATA: White blood cell count on the day of discharge 13.7 , down from 19 the previous day; total bilirubin 0.5; AST 30; ALT 132; alk phos 66. HISTORY OF PRESENT ILLNESS AND HOSPITAL COURSE: This is a 37-year-old female with past medical history as outlined in the history of present illness, who on the day of admission had several presentations to the emergency room with right upper quadrant abdominal pain; however, imaging on those presentations to the emergency room were not consistent with cholecystitis. She had non-elevated white blood cell count, normal LFTs; however, on her third visit to the emergency room, she was found with continued right upper quadrant pain as well as an elevated AST and ALT. While the CAT scan and ultrasound did not indicate acute cholecystitis, there was slightly thickened wall of the gallbladder on ultrasound and potentially plump CBD. She underwent an MRCP, which indicated cholelithiasis along with pericholecystic edema and fluid suggestive of a cholecystitis but no evidence of common duct stone. She was started on Zosyn and taken to the operating room the following day by Dr. Mendoza and underwent a successful cholecystectomy. Abdominal pain was improved prior to the cholecystectomy on antibiotics. On the day of discharge, she was much improved. Bilirubin was downtrending indicating low suspicion for retained stone. There were no complications with the hospital stay. FOLLOWUP: Instructions given from surgical team regarding care of wound, follow up with their service, and postsurgical complications. TIME SPENT: Greater than 45 minutes was spent on discharge of this patient, greater than half was spent [id number] with the patient. [id number]/[facility] #: [id number] SHERMAN
[2018-07-04] MEDS ORDERED: Scopolamine PATCH Remove* 1 NOTE MISC PATCH OFF SCH (12:00)
== END 2018-07-03 17:45 | disposition home or self-care (01) | DRG 263 ==
LOC: ED 01:02 → SSU 03:31
PROVIDERS: ADMIT Pediatrics; ATTEND Internal Medicine
PROC: 0FT44ZZ Resection of Gallbladder, Percutaneous Endoscopic Approach (ICD-10-PCS; principal; 2018-07-02 11:45)
DX: K80.00 Calculus of gallbladder with acute cholecystitis without obstruction (principal); Z68.41 Body mass index [BMI] 40.0-44.9, adult; K82.8 Other specified diseases of gallbladder; E66.01 Morbid (severe) obesity due to excess calories; F41.9 Anxiety disorder, unspecified; R74.0 Nonspecific elevation of levels of transaminase and lactic acid dehydrogenase [LDH]; F32.9 Major depressive disorder, single episode, unspecified; Z90.710 Acquired absence of both cervix and uterus; Z98.84 Bariatric surgery status; Z88.8 Allergy status to other drugs, medicaments and biological substances; Z82.49 Family history of ischemic heart disease and other diseases of the circulatory system; Z83.3 Family history of diabetes mellitus; Z83.79 Family history of other diseases of the digestive system
CPT/HCPCS: 36415; 74181; 76376; 80053; 80074; 80076; 81003; 83690; 85025; 88304; 99284; A9270-GY; J1100; J1170; J1200; J1885; J2250; J2270; J2405; J2543; J2704; J3010; J3490

== ENCOUNTER 2018-07-04 10:49 | Emergency (ER) | payer OTHER ==
[2018-07-04] MEDS ORDERED: Ondansetron INJ* 2 MG/ML VIAL IV ONE (11:09)
[2018-07-04] MEDS ORDERED: HYDROmorphone INJ1* 1 MG/ML SYRINGE IV SLOW PU ONE (11:09)
[2018-07-04] MEDS ORDERED: Thiamine IV 100 MG, Folic Acid IV* 1 MG, Multiple Vitamin IV ADULT* 10 ML in NS 0.9% 10... IV ONE (11:09)
--- NOTE | 2018-07-04 11:10 | ED ---
Abdominal Pain/Female - HPI Summary HPI Summary: Patient is a 37 y/o F with hx gastric bypass surgery 2011, presenting to ED via EMS with complaints of epigastric pain. EMS notes that they gave the patient 100 mcg of fentanyl with no relief. Patient had laparoscopic cholecysectomy 07/02 at [facility] by Dr. Mendoza. Patient reports that she was discharged to home from hospital yesterday, 07/03/18. Patient states that she was pain free when she was discharged from the hospital. However, at 199907/03/18, she had sudden onset of severe epigastic pain. She took percocet after pain onset, and this did not alleviate the pain. She took tramadol some time later and states that she did not experience any relief in Sx similarly. Patient experienced an exacerbation of pain this morning, resulting in the patient calling EMS. Initial pain was 7/ 10, patient currently rates the pain "30" out of 10. She denies N/V/D. Patient notes she has been passing gas. She states that she has not had a bowel movement in the past four days, since 06/30/18, and claims that she has not had any food in the past four days either, since 06/30/18, although she has had grape juice and water. PSHx of Mady-en-Y gastric bypass done in 2011 at [facility] in [place]. Patient states she has only had fluids in the past few days. Patient notes that she drank water around 1 hour ago, at 1000 . PSHx of hysterectomy, lab lisa, gastric bypass. FMHx of cancer. Nothing is noted to aggravate/alleviate Sx. Home medications and allergies are reviewed. Home Medications Medication Instructions Recorded Confirmed Type Multivitamin [Multivitamins] 1 cap PO DAILY 08/03/17 07/04/18 History Citalopram TAB* [Celexa TAB*] 40 mg PO DAILY PRN 03/09/18 07/04/18 History Famotidine TAB* [Pepcid 20 MG TAB*] 20 mg PO BID PRN #30 tab 06/28/18 07/04/18 Rx Naproxen [Naproxen 250 mg tab] 250 mg PO BID PRN #14 tablet 06/28/18 07/04/18 Rx Ondansetron ODT TAB* [Zofran 4 MG 4 mg PO Q8H PRN #12 tab.odt 06/28/18 07/04/18 Rx Odt TAB*] hydrOXYzine HCL TAB* [Atarax 25 MG 50 mg PO QID PRN 06/28/18 07/04/18 History TAB*] traMADol TAB* [Ultram*] 50 mg PO Q8H PRN #12 tab MDD 3 06/30/18 07/04/18 Rx Acetaminophen TAB* [Tylenol TAB*] 650 mg PO Q4H PRN tab 07/03/18 07/04/18 Rx Oxycodone HCl/Acetaminophen 1 each PO Q4H PRN #15 tablet MDD 6 07/03/18 Rx [Percocet 5-325 mg Tablet] - History of Current Complaint Chief Complaint: EDAbdPain Stated Complaint: ABD PAIN PER EMS Time Seen by Provider: 07/04/18 10:59 Hx Obtained From: Patient, EMS Hx Last Menstrual Period: hysterectomy ?: No Onset/Duration: Lasting Days - onset 199907/03/18, Still Present Timing: Constant - onset 199907/03/18 Severity Initially: Severe Severity Currently: Severe Pain Intensity: 10 Pain Scale Used: 0-10 Numeric Location: Epigastric Radiates: No Character: Sharp Aggravating Factor(s): Nothing Alleviating Factor(s): Nothing Associated Signs and Symptoms: Positive: Constipation - no BM since 06/30/18, Decreased Appetite - no food for past four days, since 06/30/18, Other: - POSITIVE - PASSING GAS. Negative: Fever, Nausea, Vomiting, Diarrhea Allergies/Adverse Reactions: Allergies Allergy/AdvReac Type Severity Reaction Status Date / Time metronidazole [From Flagyl] Allergy Rash Verified 06/28/18 08:14 PMH/Surg Hx/FS Hx/Imm Hx Previously Healthy: No Endocrine/Hematology History: Denies: Hx Diabetes Cardiovascular History: Denies: Hx Hypertension, Hx Pacemaker/ICD GI History: Reports: Hx Gall Bladder Disease, Other GI Disorders - s/p gastric bypass surg History: Denies: Hx Renal Disease Sensory History: Reports: Hx Contacts or Glasses Denies: Hx Hearing Aid Opthamlomology History: Reports: Hx Contacts or Glasses Psychiatric History: Reports: Hx Anxiety, Hx Depression Denies: Hx Panic Disorder - Cancer History Cancer Type, Location and Year: denies - Surgical History Surgery Procedure, Year, and Place: HYSTERECTOMY 2011, GASTRIC BYPASS 2011, lap lisa 07/02/18 Infectious Disease History: No Infectious Disease History: Denies: Hx Clostridium Difficile, Hx Hepatitis, Hx Human Immunodeficiency Virus (HIV), Hx of Known/Suspected MRSA, Hx Shingles, Hx Tuberculosis, Hx Known/ Suspected VRE, Hx Known/Suspected VRSA, History Other Infectious Disease, Traveled Outside the [place] in Last 30 Days - Family History Known Family History: Positive: Hypertension, Diabetes, Other - FMHx of cancer - Social History Alcohol Use: None Hx Substance Use: No Substance Use Type: Reports: None Hx Tobacco Use: No Smoking Status (MU): Never Smoked Tobacco Review of Systems Constitutional: Negative Cardiovascular: Negative Respiratory: Negative Gastrointestinal: Other - POSITIVE - DECREASED APPETITE Positive: Abdominal Pain. Negative: Vomiting, Diarrhea, Nausea Genitourinary: Other - POSITIVE - CONSTIPATION, PASSING GAS Musculoskeletal: Negative Skin: Negative Neurological: Negative Psychological: Normal All Other Systems Reviewed And Are Negative: Yes Physical Exam - Summary Physical Exam Summary: Appearance: Ill-appearing, severe pain distress, obese Skin: Warm, color reflects adequate perfusion, dry Head: Normal Head/Face inspection, atraumatic Eyes: Conjunctiva clear ENT: Normal inspection Neck: Supple, no nodes, no JVD Respiratory: Lungs clear, normal breath sounds, no respiratory distress Cardio: RRR, No murmur, pulses normal, brisk capillary refill Abdomen: Tenderness at epigastric area and substernal area that is reproducible. Healing wounds at epigastrium and RUQ, RLQ and umbilicus with no drainage or redness, bowel sounds present, non-distended, soft, no masses. Bowel sounds: Present Musculoskeletal: Strength Intact/ROM intact, no calf tenderness, no edema. Psychological: Normal Neuro: Alert, muscle tone normal, no focal deficit Triage Information Reviewed: Yes Vital Signs On Initial Exam: Initial Vitals Temp Pulse Resp BP Pulse Ox 98.8 F 83 16 142/80 96 07/04/18 10:50 07/04/18 10:50 07/04/18 10:50 07/04/18 10:50 07/04/18 10:50 Vital Signs Reviewed: Yes Diagnostics - Vital Signs Vital Signs Temp Pulse Resp BP Pulse Ox 07/04/18 10:50 98.8 F 83 16 142/80 96 - Laboratory Result Diagrams: 07/04/18 11:24 07/04/18 11:24 Lab Statement: Any lab studies that have been ordered have been reviewed, and results considered in the medical decision making process. - Radiology CXR Radiology Interpretation Completed By: Radiologist Summary of Radiographic Findings: 1. No evidence for acute intrathoracic disease. ED physician has reviewed this report. - CT Abd/Pel CT CT Interpretation Completed By: Radiologist Summary of CT Findings: 1. Fluid collection at the cholecystectomy resection bed. The primary differential 1 day postop includes postoperative hematoma, seroma, or biloma. Biliary scintigraphy suggested for further assessment if a bile leak is within the clinical differential. 2. Negative for biliary dilatation. 3. Small bilateral dependent pleural effusions and basilar atelectasis. Inflammatory infiltrates at the lung bases are not excluded. ED physician has reviewed this report. - EKG 1120 Cardiac Rate: NL - rate of 72 BPM EKG Rhythm: Sinus Rhythm ST Segment: Non-Specific Ectopy: None Summary of EKG Findings: An EKG at 1120 with sinus rhythm with rate of 72 BPM reveals nml AV/IV CT, nml QTc, and nml axis. No acute changes. ED MD has reviewed and interpreted this EKG. - Additional Comments Diagnostic Additional Comments: Hepatobiliary Scan Nuclear Medicine Impression: There is prompt normal hepatic uptake. No visualized excretion of radiopharmaceutical to the bile ducts evident. Negative for visualization of the common bile duct or small bowel through 2 hours 40 minutes postinjection. The differential includes acute hepatocellular failure and central common bile duct obstruction. There is no evidence for biliary leak. ED physician has reviewed this report. Re-Evaluation - Re-Evaluation First Eval Re-Evaluation Time: 12:15 Comment: In "too much pain" to drink contrast, more pain meds to be given. Second Eval Re-Evaluation Time: 14:14 Comment: I spoke with the patient concerning next steps needed after CT scan. Third Eval Re-Evaluation Time: 14:34 Comment: The patient's pain is rated 7/10 in severity now. I discussed the need for HIDA scan. Her O2 sat is 90% at this time while on 4L. Fourth Eval Re-Evaluation Time: 18:10 Comment: Dr. Arvizu and I discussed the need for transfer at this time since procedures for further workup is not available at [facility]. Her is in the room. Fifth Eval Change: Unchanged Comment: Pt and advised that patient is accepted at [facility]. Abdominal Pain Fem Course/Dx - Course Course Of Treatment: Patient is a 37 y/o F with hx mady-en-Y gastric bypass in 2011 presenting to ED via EMS with complaints of epigastric pain. EMS notes that they gave the patient 100 mcg of fentanyl. Patient had lap cholecystectomy 07/02/18 at [facility], patient reports that she was discharged to home from hospital yesterday, 07/03/18. Patient states that she was pain free when she was discharged from the hospital. However, at 199907/03/18, pain onset. She took percocet after pain onset, this did not alleviate the pain. She took tramadol some time later and states that she did not experience any relief in Sx similarly. Patient experienced an exacerbation of pain this morning, resulting in the patient calling EMS. Initial pain was 7/10, patient currently rates the pain "30" out of 10. She denies N/V/D. Patient notes she has been passing gas. She states that she has not had a bowel movement in the past four days, since , and claims that she has not had any food in the past four days either, since 06/30/18. PSHx of gastric bypass, patient states she has only had fluids in the past few days. Patient notes that she drank water around 1 hour ago, at 1000 07/04/18. PSHx of hysterctomy. FMHx of cancer. Home medications and allergies reviewed. Nurses notes reviewed. On physical exam, patient is in severe pain distress, obese, tenderness at epigastric area and substernal area that is reproducible. Healing wounds at epigastrium and RUQ, RLQ and umbilicus, bowel sounds present, non-distended, soft, no masses. In the ED course, the patient was administered NS, Zofran, Thiamine Hcl, Folic Acid, (in "banana bag" ) Dilaudid, and Iohexol (for CT). Blood work reveals significance in Hgb of 11.8 , INR of 1.18, potassium of 3.2, glucose of 129, calcium of 8.5, total bilirubin of 2.00, AST of 327, ALT of 33, alkaline phosphatase of 202, CRP of 140.33, amylase of 14, and lipase of <10 without any other levels outside of the normal range. An EKG at 1120 with sinus rhythm with rate of 72 BPM reveals nml AV/IV CT, nml QTc, and nml axis. No acute changes. CXR is negative for intrathoracic disease. CT Abd/Pel Impression: 1. Fluid collection at the cholecystectomy resection bed. The primary differential 1 day postop includes postoperative hematoma, seroma, or biloma. Biliary scintigraphy suggested for further assessment if a bile leak is within the clinical differential. 2. Negative for biliary dilatation. 3. Small bilateral dependent pleural effusions and basilar atelectasis. Inflammatory infiltrates at the lung bases are not excluded. Hepatobiliary Scan Nuclear Medicine Impression: There is prompt normal hepatic uptake. No visualized excretion of radiopharmaceutical to the bile ducts evident. Negative for visualization of the common bile duct or small bowel through 2 hours 40 minutes postinjection. The differential includes acute hepatocellular failure and central common bile duct obstruction. There is no evidence for biliary leak. Patient's case was discussed with Dr. Arvizu at 1217 ; Dr. Arvizu is agreeable with CT, HIDA scan may be needed, is agreeable to evaluate again if needed. At 1410, Dr. Clements, radiology, called to discuss CT Abd/Pel; if there is fluid present and no biliary dilation, a HIDA scan is necessary. He will call in the scanning team if necessary. At 1525, the patient is in the HIDA scan. At 1642, I spoke with Dr. Arvizu concerning HIDA scan. Dr. Jha, surgery, was in the ED at 1700; I spoke with him concerning the patient as he suggests that the patient may need a higher level of care because she may need ERCP cant be done for the next three days, and even then it may not be available at our facility. The patient is back in the HIDA scan at 1735 for later studies. I spoke with Dr. Clements at 1758 concerning studies. At 1810 , Dr. Arvizu and I spoke with the patient and her about the need for transfer. Dr. Arvizu agrees with transfer at this time. She is diagnosed with obstructed common bile duct, status post lap cholecystectomy 2 days ago, and history Mady-en-Y gastric bypass. I spoke with at [facility] concerning the status of the patient. At 1834, Michelle from the Transfer Center reports that [facility] does not have the ERCP available. We will attempt to have the patient transferred to [facility]. At [address] Dr. Amador accepts pt to [facility]. She will be transported by ambulance with fluids and pain medications. We discussed all results. The patient is agreeable to transfer at this time. CCT of 75-10 minutes. - Diagnoses Provider Diagnoses: Common bile duct (CBD) obstruction, History of Mady-en-Y gastric bypass, Status post laparoscopic cholecystectomy - Provider Notifications Discussed Care Of Patient With: Tim Arvizu Time Discussed With Above Provider: 12:17 Instructed by Provider To: Transfer - At 1410, Dr. Clements, radiology, called to discuss CT Abd/Pel; if there is fluid present and no biliary dilation, a HIDA scan is necessary. He will call in the scanning team if necessary. At 1525 , the patient is in the HIDA scan. At 1642, I spoke with Dr. Arvizu concerning HIDA scan. Dr. Jha, surgery, was in the ED at 1700; I spoke with him concerning the patient as he suggests that the patient may need a higher level of care because she may need ERCP cant be done for the next three days, and even then it may not be available at our facility. Patient's case was discussed with Dr. Arvizu, Dr. Arvizu is agreeable with CT, HIDA scan may be needed, is agreeable to evaluate again if needed. Dr. Portillo [facility] accepts patient at 1918 Reason For Transfer: Specialty or service not available at [facility]. - Patient needs ERCP, which is unavailable to this facility for the patient. - Critical Care Time Critical Care Time: 75-104 min Discharge - Sign-Out/Discharge Documenting (check all that apply): Patient Departure - Patient will be transferred for further care. Patient Received Moderate/Deep Sedation with Procedure: No - Discharge Plan Condition: Stable Disposition: TRANS HIGHER LVL OF CARE FAC Referrals: Tarik Ayala, STAFF EDUCATOR [Primary Care Provider] - - Billing Disposition and Condition Condition: STABLE Disposition: Trans Higher Lvl of Care Fac - Attestation Statements Document Initiated by Scribe: Yes Documenting Scribe: Rudy Ross Provider For Whom Scribe is Documenting (Include Credential): Dr. Lianna Vargas MD Scribe Attestation: I, Rudy Ross, scribed for Dr. Lianna Vargas MD on 07/04/18 at 2012. Scribe Documentation Reviewed: Yes Provider Attestation: The documentation as recorded by the scribeRudy accurately reflects the service I personally performed and the decisions made by me, Dr. Lianna Vargas MD Status of Scribe Document: Viewed
[2018-07-04] MEDS ORDERED: Folic Acid IV* 50 MG/10 ML VIAL ONE (11:31)
[2018-07-04] MEDS ORDERED: Multiple Vitamin IV ADULT* 10 ML VIAL ONE (11:31)
[2018-07-04] MEDS ORDERED: NS 0.9% 1000 ML** 1,000 ML ONE (11:31)
[2018-07-04 11:34] LABS: ABS Eosinophils 0.1 10^3/ul (0-0.6); ABS Monocytes 0.8 10^3/ul (0-0.8); ABS Neutrophils 6.1 10^3/ul (1.5-7.7); Eosinophil % 0.8 %; Hematocrit 36 % (35-47); Hemoglobin 11.8 g/dL (12.0-16.0); Lymphocyte % 12.5 %; Mean Corpuscular HGB Conc 33 g/dL (31-36); Mean Corpuscular Hemoglobin 29 pg (27-31); Mean Corpuscular Volume 86 fL (80-97); Mean Platelet Volume 7.6 fL (7.4-10.4); Platelet Count 365 10^3/uL (150-450); Red Blood Count 4.15 10^6 /uL (3.70-4.87); Red Cell Distribution Width 12 % (10.5-15)
[2018-07-04 11:49] LABS: INR 1.18 (0.82-1.09)
[2018-07-04 11:51] LABS: ALT 334 U/L (7-52); AST 327 U/L (13-39); Albumin 3.4 g/dL (3.2-5.2); Albumin/Globulin Ratio 1.1 (1-3); Alkaline Phosphatase 202 U/L (34-104); Amylase 14 U/L (29-103); Anion Gap 8 mmol/L (2-11); BUN/Creatinine Ratio 18.5 (8-20); Blood Urea Nitrogen 12 mg/dL (6-24); C Reactive Protein 140.33 mg/L (<8.01); CO2 Carbon Dioxide 27 mmol/L (22-32); Calcium 8.5 mg/dL (8.6-10.3); Chloride 102 mmol/L (101-111); Creatine Kinase 31 U/L (10-223); EGFR African American 125.5 (>60); EGFR Non-African American 103.7 (>60); Globulin 3.1 g/dL (2-4); Glucose 129 mg/dL (70-100); Magnesium 1.9 mg/dL (1.9-2.7); Potassium 3.2 mmol/L (3.5-5.0); Sodium 137 mmol/L (135-145); Total Protein 6.5 g/dL (6.4-8.9)
[2018-07-04 11:52] LABS: Troponin I 0.01 ng/mL (<0.04)
[2018-07-04] MEDS ORDERED: Iohexol 300* (CONTRAST) 10 ML SDV IV ONE (12:00)
[2018-07-04] MEDS: HYDROmorphone INJ1* 1 MG/ML SYRINGE IV ONE ×2 (12:40→14:28)
--- NOTE | 2018-07-04 14:36 | CONSULT ---
Consult Consult: CC: chest and abdominal pain after laparoscopic cholecystectomy HPI: The patient is a 37 year old female who is status post a laparoscopic cholecystectomy by Dr. Mendoza on 07/02 having been admitted with acute cholecystitis on 07/01. She was discharged home 07/03 tolerating diet with prescription for Percocet. She called the office today with a complaint of chest pain and epigastric pain unrelieved by Percocet or tramadol. She was directed to the emergency department at [facility]. She denies nausea , vomiting, fevers or chills. PMH: morbid obesity, anxiety and depression. PSH: LRYGB ,vag hysterectomy On physical examination she appears acutely ill afebrile, vital signs stable there is no scleral icterus abdominal incisions are well approximated and without drainage or erythema. her abdomen is obese, soft, with tenderness across the epigastrium. Laboratory data were reviewed and notable for normal wbc's, elevated lfts and bilirubin 2.0 CT showed fluid in GB fossa. Impression: 37 year old female status post laparoscopic cholecystectomy, POD#2. Findings are suggestive of a bile leak. Recommendation: I discussed the findings with Dr. Vargas in the emergency room. HIDA scan would be the optimal test. If the patient does have a leak then likely she would be transferred for ercp and stent placement. This would be more complicated than typical due to her prior gastric bypass.
[2018-07-04 17:12] LABS: Urine Appearance Clear; Urine Bacteria Absent (Absent); Urine Bilirubin 1+ (Negative); Urine Blood Negative (Negative); Urine Color Amber; Urine Glucose Negative (Negative); Urine Ketones Trace (Negative); Urine Nitrite Negative (Negative); Urine Protein 1+(30 mg/dL) (Negative); Urine Red Blood Cell 2+(6-10/hpf) (Absent); Urine Specific Gravity > 1.060 (1.010-1.030); Urine Squamous Epithelial Cell Present (Absent); Urine Urobilinogen Positive (Negative); Urine White Blood Cell Trace(0-5/hpf) (Absent)
[2018-07-04] MEDS ORDERED: HYDROmorphone INJ1* 1 MG/ML SYRINGE IV ONE ×2 (17:16→20:39)
[2018-07-04 20:59] VITALS: BP 100/56
== END 2018-07-04 21:02 | disposition short-term general hospital (02) ==
LOC: ED 10:49
DX: R10.13 Epigastric pain (principal); K59.00 Constipation, unspecified; K83.1 Obstruction of bile duct; Z98.84 Bariatric surgery status; Z90.49 Acquired absence of other specified parts of digestive tract
CPT/HCPCS: 36415; 71045; 74177; 78226; 80053; 81003; 81015; 82150; 82550; 83605; 83690; 83735; 84484; 85025; 85610; 85730; 86140; 87086; 93005; 96374; 96375; 96376; 99285; A9537; J1170; J2405; J3411; Q9967

== ENCOUNTER 2018-10-13 12:22 | Emergency (ER) | payer OTHER ==
[2018-10-13 12:35] VITALS: BP 119/63
--- NOTE | 2018-10-13 14:05 | UC ---
Back Pain HPI - HPI Summary HPI Summary: STOOD UP FROM A CHAIR YESTERDAY AND DEVELOPED LEFT LOW BACK PAIN WITH SOME RADIATION DOWN HER LEG. NO NUMBNESS/TINGLING. NO SADDLE ANESTHESIA. NO LOSS OF BOWEL OR BLADDER CONTROL. STATES SHE GETS THIS FROM TIME TO TIME AND DOES WELL WITH MUSCLE RELAXERS. IBUPROFEN NOT HELPING. - History of Current Complaint Chief Complaint: UCBackPain Stated Complaint: BACK INJURY Time Seen by Provider: 10/13/18 13:01 Hx Obtained From: Patient Hx Last Menstrual Period: hyster Onset/Duration: Sudden Onset, Lasting Days - 1 DAY, Still Present Timing: Constant Severity Initially: Moderate Severity Currently: Moderate Pain Intensity: 5 Pain Scale Used: 0-10 Numeric Back Pain: Is Discrete @ - LEFT LOW BACK Character: Sharp Aggravating Factor(s): Movement Alleviating Factor(s): Rest, Position Associated Signs And Symptoms: Positive: Negative - Allergies/Home Medications Allergies/Adverse Reactions: Allergies Allergy/AdvReac Type Severity Reaction Status Date / Time metronidazole [From Flagyl] Allergy Rash Verified 10/13/18 12:36 PMH/Surg Hx/FS Hx/Imm Hx Previously Healthy: Yes - Surgical History Surgical History: Yes Surgery Procedure, Year, and Place: HYSTERECTOMY 2011, GASTRIC BYPASS 2011, lap lisa 07/02/18 - Family History Known Family History: Positive: Hypertension, Diabetes, Other - FMHx of cancer - Social History Alcohol Use: None Alcohol Amount: UNABLE TO OBTAIN Substance Use Type: None Substance Use Comment - Amount & Last Used: UNABLE TO OBTAIN Smoking Status (MU): Never Smoked Tobacco - Immunization History Most Recent Influenza Vaccination: unknown Most Recent Tetanus Shot: not sure Most Recent Pneumonia Vaccination: unknown Review of Systems All Other Systems Reviewed And Are Negative: Yes Constitutional: Positive: Negative Skin: Positive: Negative Respiratory: Positive: Negative Cardiovascular: Positive: Negative Gastrointestinal: Positive: Negative Musculoskeletal: Positive: Myalgia - LEFT LOW BACK Neurological: Positive: Negative Physical Exam Triage Information Reviewed: Yes Appearance: Well-Appearing, Well-Nourished, Pain Distress - MODERATE PAIN WITH MVMT, Obese Vital Signs: Initial Vital Signs Temp 98 F 10/13/18 12:33 Pulse 65 10/13/18 12:33 Resp 17 10/13/18 12:33 BP 119/63 10/13/18 12:33 Pulse Ox 100 10/13/18 12:33 Vital Signs Reviewed: Yes Eyes: Positive: Conjunctiva Clear ENT: Positive: Hearing grossly normal Neck: Positive: Supple Respiratory: Positive: No respiratory distress, No accessory muscle use Cardiovascular: Positive: Pulses Normal Abdomen Description: Positive: Soft Musculoskeletal: Positive: No Edema, ROM Limited @ - BACK, Other: - NO TENDERNESS OVER BONY PROMINENCES OR SOFT TISSUES OF LOW BACK Neurological: Positive: Alert Psychological: Positive: Age Appropriate Behavior Skin: Negative: Rashes Back Pain Course/Dx - Differential Dx/Diagnosis Provider Diagnosis: Acute low back pain Discharge ED - Sign-Out/Discharge Documenting (check all that apply): Patient Departure All imaging exams completed and their final reports reviewed: No Studies - Discharge Plan Condition: Stable Disposition: HOME Prescriptions: Cyclobenzaprine TAB* [Flexeril TAB*] 10 mg PO BID PRN #30 tab PRN Reason: Pain Naproxen [Naproxen 500 mg tab] 500 mg PO BID PRN #30 tablet PRN Reason: Pain Patient Education Materials: Low Back Strain (ED) Referrals: Tarik Ayala [facility] [Primary Care Provider] - 1 Week Additional Instructions: YOUR SYMPTOMS SHOULD IMPROVE SIGNIFICANTLY OVER THE NEXT 1-2 WEEKS. IF YOU DO NOT IMPROVE EXPECTED FOLLOW-UP WITH YOUR PCP. YOU MAY BENEFIT FROM IMAGING AT THAT TIME. CONSIDER PHYSICAL THERAPY. REST. NAPROXEN FOR DISCOMFORT. TAKE MUSCLE RELAXER BEFORE BED. BE SURE TO GO THROUGH SLOW RANGE OF MOTION AND STRETCHING EXERCISES DAILY YOU ARE ABLE TO PREVENT STIFFENING UP AND MAKING THE DISCOMFORT WORSE. GO TO THE ED WITHOUT FAIL IF YOU DEVELOP NUMBNESS/TINGLING IN YOUR LEGS, NUMBNESS IN THE GENITAL REGION, LOSS OF BOWEL/BLADDER CONTROL, INTOLERABLE PAIN OR ANY OTHER CONCERNING SYMPTOMS. - Billing Disposition and Condition Condition: STABLE Disposition: Home
== END 2018-10-13 13:24 | disposition home or self-care (01) ==
LOC: UCEAST 12:22
DX: M54.5 Low back pain (principal); Z98.84 Bariatric surgery status
CPT/HCPCS: 99212; G0463

== ENCOUNTER 2018-12-21 09:02 | Emergency (ER) | payer OTHER ==
[2018-12-21 09:12] VITALS: BP 113/78
--- NOTE | 2018-12-21 09:13 | UC ---
Hand/Wrist HPI - HPI Summary HPI Summary: Patient is a 38yo female presenting with L wrist pain x1 year that worsened two days ago. Describes pain as severe aching that radiates into her hand, causing tingling. Also notes worsening weakness of the L hand staker surveying at times. Denies numbness. Denies decreased ROM. 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 States pain is worse with typing and better with rest. - History Of Current Complaint Chief Complaint: UCUpperExtremity Stated Complaint: wrIST INJURY Hx Obtained From: Patient Hx Last Menstrual Period: hyster Onset/Duration: Gradual Onset, Worse Since - 2 days ago Severity Initially: Mild Severity Currently: Moderate Pain Intensity: 4 Pain Scale Used: 0-10 Numeric Related History: Dominant Hand Left - Allergies/Home Medications Allergies/Adverse Reactions: Allergies Allergy/AdvReac Type Severity Reaction Status Date / Time metronidazole [From Flagyl] Allergy Rash Verified 12/21/18 09:11 Home Medications: Home Medications Ibuprofen 600 mg PO 12/21/18 [History] PMH/Surg Hx/FS Hx/Imm Hx - Surgical History Surgical History: Yes Surgery Procedure, Year, and Place: HYSTERECTOMY 2011, GASTRIC BYPASS 2011, lap [facility] 07/02/18 - Family History Known Family History: Positive: Hypertension, Diabetes, Other - FMHx of cancer - Social History Occupation: Student Lives: With Family Alcohol Use: None Alcohol Amount: UNABLE TO OBTAIN Substance Use Type: None Substance Use Comment - Amount & Last Used: UNABLE TO OBTAIN Smoking Status (MU): Never Smoked Tobacco - Immunization History Most Recent Influenza Vaccination: unknown Most Recent Tetanus Shot: not sure Most Recent Pneumonia Vaccination: unknown Review of Systems All Other Systems Reviewed And Are Negative: Yes Skin: Positive: Negative Respiratory: Positive: Negative Cardiovascular: Positive: Negative Musculoskeletal: Positive: Arthralgia. Negative: Decreased ROM, Edema, Myalgia Neurological: Positive: Weakness, Paresthesia. Negative: Numbness Physical Exam Triage Information Reviewed: Yes Appearance: Well-Appearing, No Pain Distress, Well-Nourished Vital Signs: Initial Vital Signs Temp 97.3 F 12/21/18 09:07 Pulse 86 12/21/18 09:07 Resp 18 12/21/18 09:07 BP 113/78 12/21/18 09:07 Pulse Ox 98 12/21/18 09:07 Vital Signs Reviewed: Yes Eyes: Positive: Conjunctiva Clear ENT: Positive: Hearing grossly normal Neck: Positive: Supple Respiratory: Positive: No respiratory distress Cardiovascular: Positive: Pulses Normal - strong radial pulses b/l Musculoskeletal: Positive: Strength Intact, ROM Intact, No Edema, Other: - positive phalen's test Neurological: Positive: Alert Psychological: Positive: Age Appropriate Behavior Skin Exam: Normal Hand/Wrist Course/Dx - Course Course Of Treatment: Educated patient on carpal tunnel syndrome and to continue with symptomatic treatment including rest and use of splint. Instructed to follow up with pcp or ortho if symptoms persist. Patient voiced understanding and agreed with treatment plan. - Differential Dx/Diagnosis Provider Diagnosis: Carpal tunnel syndrome of left wrist Discharge ED - Sign-Out/Discharge Documenting (check all that apply): Patient Departure All imaging exams completed and their final reports reviewed: No Studies - Discharge Plan Condition: Stable Disposition: HOME Forms: *Work Release Referrals: Tarik Ayala NP [Primary Care Provider] - If Needed Clarisa Benz MD [Medical Doctor] - If Needed Additional Instructions: As discussed, your symptoms are likely caused by Carpal Tunnel Syndrome. The pain should resolve with symptomatic treatment. This means resting the hand/ wrist as much as possible. You may also use the splint to help alleviate pain and offer support. You may continue to ice and take ibuprofen as directed for pain relief. Follow up with your PCP or the orthopedics referral listed below if pain does not resolve within a few weeks. - Billing Disposition and Condition Condition: STABLE Disposition: Home
== END 2018-12-21 10:05 | disposition home or self-care (01) ==
LOC: UCEAST 09:02
DX: G56.02 Carpal tunnel syndrome, left upper limb (principal); Z88.1 Allergy status to other antibiotic agents
CPT/HCPCS: 99212; G0463

== ENCOUNTER 2018-12-29 11:56 | Emergency (ER) | payer OTHER ==
[2018-12-29 12:16] VITALS: BP 117/72
--- NOTE | 2018-12-29 12:17 | UC ---
General HPI - HPI Summary HPI Summary: 38 yo with a history of hypoglycemia and anxiety, comes today for evaluation of low blood sugar which has precipitated seizures in the past, the last about a month ago. She also has a history of anxiety, for which she is being treated with desvenlafaxine 50mg daily. Recently she was started on ariprazole 10mg for mood stabilization, with first dose about a week ago. Additionally, she uses hydroxyzine for anxiety. Her approach to low blood sugars has been to ensure that she eats something when the symptoms begin. Today, she began eating some chicken dante, then decided to come her. Initial blood fingerstick level is 129. She does monitor blood sugars regularly and has a strategy for blood sugar control which includes frequent eating and eating protein regularly. Does not use substances - History of Current Complaint Stated Complaint: LOW BLOOD SUGAR, FAST HEART BEAT Time Seen by Provider: 12/29/18 11:58 Hx Obtained From: Patient Hx Last Menstrual Period: hyster Onset/Duration: Sudden Onset, Lasting Minutes - onset within the hour Timing: Constant Onset Severity: Moderate Current Severity: Moderate - Allergy/Home Medications Allergies/Adverse Reactions: Allergies Allergy/AdvReac Type Severity Reaction Status Date / Time metronidazole [From Flagyl] Allergy Rash Verified 12/21/18 09:11 Home Medications: Home Medications ARIPiprazole [Aripiprazole] 10 mg PO DAILY 12/29/18 [History Confirmed 12/29/18] Biotin [Biotin Ultra Strength] 10 mg PO DAILY 12/29/18 [History Confirmed ] Cranberry 15,000 mg PO 12/29/18 [History] Cyanocobalamin TAB* [Vitamin B12 TAB*] 500 mcg PO DAILY 12/29/18 [History Confirmed 12/29/18] Desvenlafaxine [Desvenlafaxine ER] 50 mg PO DAILY 12/29/18 [History Confirmed ] hydrOXYzine HCL TAB* [Atarax TAB 50 MG *] 50 mg PO BEDTIME PRN 12/29/18 [ History Confirmed 12/29/18] PMH/Surg Hx/FS Hx/Imm Hx Psychological History: Anxiety, Depression - Surgical History Surgical History: Yes Surgery Procedure, Year, and Place: HYSTERECTOMY 2011, GASTRIC BYPASS 2011, lap [facility] 07/02/18 - Family History Known Family History: Positive: Hypertension, Diabetes, Other - FMHx of cancer - Social History Occupation: Student Lives: With Family - four children Alcohol Use: None Alcohol Amount: UNABLE TO OBTAIN Substance Use Type: None Substance Use Comment - Amount & Last Used: UNABLE TO OBTAIN Smoking Status (MU): Never Smoked Tobacco - Immunization History Most Recent Influenza Vaccination: unknown Most Recent Tetanus Shot: not sure Most Recent Pneumonia Vaccination: unknown Review of Systems All Other Systems Reviewed And Are Negative: Yes Constitutional: Positive: Fatigue - often feels fatigued and unwell Skin: Positive: Negative Eyes: Positive: Negative ENT: Positive: Negative Respiratory: Positive: Shortness Of Breath. Negative: Cough Cardiovascular: Positive: Palpitations. Negative: Chest Pain Gastrointestinal: Positive: Negative, Other - post cholecystectomy without complications Genitourinary: Positive: Negative Motor: Positive: Negative Neurovascular: Positive: Negative Musculoskeletal: Positive: Negative Psychological: Positive: Anxious Is Patient Immunocompromised?: No Physical Exam Triage Information Reviewed: Yes Appearance: Well-Appearing, No Pain Distress, Obese Eye Exam: Other - ADARSH Eyes: Positive: Conjunctiva Clear ENT: Positive: Pharynx normal Neck: Positive: Supple, Nontender, No Lymphadenopathy Respiratory: Positive: Lungs clear, Normal breath sounds, No respiratory distress Cardiovascular: Positive: RRR, No Murmur Abdomen Description: Positive: Nontender, No Organomegaly, Soft Musculoskeletal Exam: Normal Neurological: Positive: Alert, Muscle Tone Normal Psychological Exam: Other - anxious, mildly depressed affect. Skin Exam: Normal - warm and well perfused. Course/Dx - Course Course Of Treatment: Normal EKG and blood sugar, vitals normal. Possibly symptoms are side effect of newly started aripiprazole. She has follow up visits both with Tarik Ayala and with her counsellor Janelle Jernigan - Differential Dx - Multi-Symptom Differential Diagnoses: Other - SVT, medication side effect. - Diagnoses Provider Diagnosis: Palpitations with regular cardiac rhythm Discharge ED - Sign-Out/Discharge Documenting (check all that apply): Patient Departure All imaging exams completed and their final reports reviewed: No Studies - Discharge Plan Condition: Stable Disposition: HOME Patient Education Materials: Heart Palpitations (ED) Referrals: Tarik Ayala, [employer] [Primary Care Provider] - Additional Instructions: Your heart rhythm and EKG are normal today, as is your blood sugar. Please follow up with Tarik Ayala and with Janelle Jernigan to review medications and treatment of anxiety. Your symptoms could be a side effect of ariprazole, which might wear off with time. - Billing Disposition and Condition Condition: STABLE Disposition: Home
== END 2018-12-29 12:50 | disposition home or self-care (01) ==
LOC: UCEAST 11:56
DX: R00.2 Palpitations (principal); Z88.1 Allergy status to other antibiotic agents; F41.9 Anxiety disorder, unspecified; R53.83 Other fatigue; F32.9 Major depressive disorder, single episode, unspecified; R06.02 Shortness of breath
CPT/HCPCS: 93005; 99211; G0463

== ENCOUNTER 2020-04-28 10:07 | Inpatient (IN) ==
[2020-04-28] MEDS ORDERED: Morphine 4 MG/ML VIAL (1 ml) IV ONE (11:46)
[2020-04-28] MEDS ORDERED: Orphenadrine Citrate INJ 30 mg/ml 2 ml VIAL (60 mg) IV ONE (11:47)
[2020-04-28] MEDS ORDERED: Acetaminophen IV 1 GM/100ML 100 ML IVPB ONE (11:48)
[2020-04-28] MEDS ORDERED: Dexamethasone IV 4 MG/ML VIAL 1 ml VIAL IV SLOW PU ONE (11:48)
[2020-04-28] MEDS ORDERED: Ondansetron 4 mg VIAL 2 MG/ML 2 ml VIAL IV ONE (13:12)
[2020-04-28] MEDS ORDERED: Ondansetron 4 mg VIAL 2 MG/ML 2 ml VIAL IV PRN (15:01)
[2020-04-28] MEDS: Dexamethasone IV 4 MG/ML VIAL 1 ml VIAL IV SLOW PU SCH (22:31)
[2020-04-28] MEDS: Acetaminophen IV 1 GM/100ML 100 ML IVPB SCH (22:31)
[2020-04-29 04:30] LABS: ABS Lymphocytes 1.2 10^3/ul (1.0-4.8); ABS Monocytes 0.3 10^3/ul (0-0.8); ABS Neutrophils 13.1 10^3/ul (1.5-7.7); Hematocrit 45 % (35-47); Hemoglobin 15.1 g/dL (12.0-16.0); Mean Corpuscular HGB Conc 33 g/dL (31-36); Mean Corpuscular Hemoglobin 28 pg (27-31); Mean Corpuscular Volume 83 fL (80-97); Mean Platelet Volume 7.2 fL (7.4-10.4); Platelet Count 407 10^3/uL (150-450); Red Blood Count 5.43 10^6 /uL (3.70-4.87); Red Cell Distribution Width 14 % (10-15); White Blood Count 14.5 10^3/uL (3.5-10.8)
[2020-04-29 04:49] LABS: Calcium 9.3 mg/dL (8.6-10.3); EGFR African American 106.9 (>60); EGFR Non-African American 88.3 (>60); Potassium 4.2 mmol/L (3.5-5.0)
[2020-04-29] MEDS: Acetaminophen IV 1 GM/100ML 100 ML IVPB SCH ×2 (06:15→14:00)
[2020-04-29] MEDS: Dexamethasone IV 4 MG/ML VIAL 1 ml VIAL IV SLOW PU SCH ×3 (06:15→20:28)
[2020-04-29] MEDS: Amphetamine/Dextroam ER 10(NF) 10 mg CAP.ER PO SCH (09:00)
[2020-04-29] MEDS: Lidocaine PATCH 5% PATCH TRANSDERM SCH (17:11)
[2020-04-29] MEDS ORDERED: Diazepam INJ CARPUJECT 5 MG/ML IV PRN (18:22)
[2020-04-29] MEDS ORDERED: Orphenadrine Citrate INJ 30 mg/ml 2 ml VIAL (60 mg) IV SCH (19:00)
[2020-04-29] MEDS: Enoxaparin 40 MG/0.4 ML SYR SUBCUT SCH (20:28)
[2020-04-29] MEDS: Orphenadrine Citrate INJ 30 mg/ml 2 ml VIAL (60 mg) IV SCH (20:28)
[2020-04-30] MEDS: Dexamethasone IV 4 MG/ML VIAL 1 ml VIAL IV SLOW PU SCH ×3 (05:22→20:04)
[2020-04-30 08:47] LABS: ABS Lymphocytes 1.7 10^3/ul (1.0-4.8); ABS Monocytes 0.6 10^3/ul (0-0.8); ABS Neutrophils 18.4 10^3/ul (1.5-7.7); Hematocrit 44 % (35-47); Hemoglobin 14.4 g/dL (12.0-16.0); Lymphocyte % 8.2 %; Mean Corpuscular HGB Conc 33 g/dL (31-36); Mean Corpuscular Hemoglobin 27 pg (27-31); Mean Corpuscular Volume 84 fL (80-97); Mean Platelet Volume 7.7 fL (7.4-10.4); Platelet Count 409 10^3/uL (150-450); Red Blood Count 5.29 10^6 /uL (3.70-4.87); Red Cell Distribution Width 14 % (10-15); White Blood Count 20.7 10^3/uL (3.5-10.8)
[2020-04-30] MEDS: Amphetamine/Dextroam ER 10(NF) 10 mg CAP.ER PO SCH (09:03)
[2020-04-30] MEDS: Orphenadrine Citrate INJ 30 mg/ml 2 ml VIAL (60 mg) IV SCH ×2 (09:03→20:03)
[2020-04-30 09:50] LABS: Urine Appearance Clear; Urine Bilirubin Negative (Negative); Urine Blood Negative (Negative); Urine Color Yellow; Urine Glucose Negative (Negative); Urine Ketones Negative (Negative); Urine Nitrite Negative (Negative); Urine Protein 1+(30 mg/dL) (Negative); Urine Specific Gravity 1.033 (1.010-1.030); Urine Urobilinogen Negative (Negative)
[2020-04-30 09:57] LABS: Urine Bacteria Absent (Absent); Urine Red Blood Cell Absent (Absent); Urine White Blood Cell Absent (Absent)
[2020-04-30] MEDS: Lidocaine PATCH 5% PATCH TRANSDERM SCH (18:06)
[2020-04-30] MEDS: Enoxaparin 40 MG/0.4 ML SYR SUBCUT SCH (20:03)
[2020-05-01 04:46] LABS: ABS Lymphocytes 1.9 10^3/ul (1.0-4.8); ABS Monocytes 0.7 10^3/ul (0-0.8); Hematocrit 43 % (35-47); Hemoglobin 14.1 g/dL (12.0-16.0); Lymphocyte % 12.7 %; Mean Corpuscular HGB Conc 33 g/dL (31-36); Mean Corpuscular Hemoglobin 28 pg (27-31); Mean Corpuscular Volume 84 fL (80-97); Mean Platelet Volume 7.6 fL (7.4-10.4); Platelet Count 385 10^3/uL (150-450); Red Blood Count 5.09 10^6 /uL (3.70-4.87); Red Cell Distribution Width 14 % (10-15); White Blood Count 14.6 10^3/uL (3.5-10.8)
[2020-05-01 05:01] LABS: BUN/Creatinine Ratio 47.1 (8-20); EGFR African American 113.9 (>60); EGFR Non-African American 94.2 (>60)
[2020-05-01] MEDS: Dexamethasone IV 4 MG/ML VIAL 1 ml VIAL IV SLOW PU SCH ×2 (05:33→15:11)
[2020-05-01] MEDS: Orphenadrine Citrate INJ 30 mg/ml 2 ml VIAL (60 mg) IV SCH (07:47)
[2020-05-01] MEDS ORDERED: Polyethylene Glycol 3350 17 GM PACKET PO PRN (07:51)
[2020-05-01] MEDS ORDERED: Magnesium Hydroxide LIQ 30 ML UDC PO SCH (09:00)
[2020-05-01] MEDS: Amphetamine/Dextroam ER 10(NF) 10 mg CAP.ER PO SCH (09:01)
[2020-05-01] MEDS ORDERED: Bupivacaine 0.5% SDV PF 30ML VIAL ONE (11:10)
[2020-05-01] MEDS ORDERED: Iohexol 300 (CONTRAST) 10 ML SDV ONE (11:10)
[2020-05-01] MEDS ORDERED: Buffered Lidocaine 1% SYRIN 1 ml INTRADERM ONE (11:10)
[2020-05-01] MEDS ORDERED: methylPREDNISolone ACETATE 40 mg/ml 1 ml VIAL **not IV ONE (11:10)
[2020-05-01] MEDS ORDERED: Gadoteridol (CONTRAST) 279.3 MG/ML 10 ML IV ONE (15:51)
[2020-05-01 16:25] VITALS: BP 125/73
[2020-05-01] MEDS: Lidocaine PATCH 5% PATCH TRANSDERM SCH (17:23)
== END 2020-05-01 18:00 | disposition home or self-care (01) | DRG 347 ==
LOC: ED 10:07 → SSU 10:07 → MERGE 04-30 18:08
PROVIDERS: ADMIT Hospitalist; ATTEND Hospitalist

== ENCOUNTER 2020-05-17 08:37 | Observation (INO) ==
[2020-05-17] MEDS ORDERED: Orphenadrine Citrate INJ 30 mg/ml 2 ml VIAL (60 mg) IV ONE (09:00)
[2020-05-17] MEDS ORDERED: Acetaminophen IV 1 GM/100ML 100 ML IVPB ONE (09:00)
[2020-05-17] MEDS ORDERED: Dexamethasone IV 4 MG/ML VIAL 1 ml VIAL IV SLOW PU ONE (09:01)
[2020-05-17 09:17] LABS: ABS Basophils 0.1 10^3/ul (0-0.2); ABS Eosinophils 0.2 10^3/ul (0-0.6); ABS Lymphocytes 2.4 10^3/ul (1.0-4.8); ABS Monocytes 0.5 10^3/ul (0-0.8); ABS Neutrophils 4.3 10^3/ul (1.5-7.7); Eosinophil % 2.9 %; Hematocrit 42 % (35-47); Hemoglobin 14.2 g/dL (12.0-16.0); Lymphocyte % 31.6 %; Mean Corpuscular HGB Conc 34 g/dL (31-36); Mean Corpuscular Hemoglobin 28 pg (27-31); Mean Corpuscular Volume 82 fL (80-97); Mean Platelet Volume 7.1 fL (7.4-10.4); Platelet Count 283 10^3/uL (150-450); Red Blood Count 5.03 10^6 /uL (3.70-4.87); Red Cell Distribution Width 14 % (10-15); White Blood Count 7.5 10^3/uL (3.5-10.8)
[2020-05-17 09:22] LABS: INR 1.03 (0.82-1.09)
[2020-05-17 09:33] LABS: ALT 21 U/L (7-52); AST 20 U/L (13-39); Albumin 3.8 g/dL (3.2-5.2); Albumin/Globulin Ratio 1.5 (1-3); Alkaline Phosphatase 32 U/L (34-104); Anion Gap 5 mmol/L (2-11); BUN/Creatinine Ratio 22.4 (8-20); Blood Urea Nitrogen 17 mg/dL (6-24); CO2 Carbon Dioxide 27 mmol/L (22-32); Calcium 8.9 mg/dL (8.6-10.3); Chloride 106 mmol/L (101-111); EGFR African American 103.6 (>60); EGFR Non-African American 85.6 (>60); Globulin 2.6 g/dL (2-4); Glucose 107 mg/dL (70-100); Sodium 138 mmol/L (135-145); Total Protein 6.4 g/dL (6.4-8.9)
[2020-05-17 09:39] LABS: HCG Pregnancy < 0.60 mIU/mL
[2020-05-17] MEDS ORDERED: Lidocaine PATCH 5% PATCH TRANSDERM ONE (14:30)
[2020-05-17] MEDS ORDERED: Enoxaparin 40 MG/0.4 ML SYR SUBCUT SCH (16:00)
[2020-05-17] MEDS ORDERED: oxyCODONE/Acetamin 5/325 mg TAB PO PRN (16:01)
[2020-05-17] MEDS: Lidocaine Patch REMOVE PATCH PATCH OFF SCH (22:26)
[2020-05-18] MEDS ORDERED: Diazepam INJ CARPUJECT 5 MG/ML IV ONE (06:14)
[2020-05-18] MEDS ORDERED: oxyCODONE/Acetamin 5/325 mg TAB PO ONE (08:44)
[2020-05-18] MEDS ORDERED: Amphetamine/Dextroam ER 10(NF) 10 mg CAP.ER PO SCH (09:00)
[2020-05-18] MEDS ORDERED: oxyCODONE/Acetamin 5/325 mg TAB PO PRN (12:33)
[2020-05-18] MEDS: Lidocaine Patch REMOVE PATCH PATCH OFF SCH (21:14)
[2020-05-19 10:58] VITALS: BP 133/77
== END 2020-05-19 12:55 | disposition home or self-care (01) ==
LOC: SSU 08:37 → ED 08:37
PROVIDERS: ADMIT Internal Medicine; ATTEND Internal Medicine